=== PATIENT | female | born 1975 | race Caucasian/White ===

== ENCOUNTER 2017-05-23 13:22 | Emergency (ER) | payer SELFPAY ==
[2017-05-23] MEDS ORDERED: Transderm Scop 1.5MG Patch TOP ONE (13:38)
[2017-05-23] MEDS ORDERED: Zofran 4 MG/2 ML VIAL IV ONE (13:38)
[2017-05-23] MEDS ORDERED: ANTIVERT 25 MG PO ONE (13:38)
[2017-05-23] MEDS ORDERED: Sodium Chloride 0.9% 1000 ML 1,000 ML ONE (13:44)
[2017-05-23] MEDS ORDERED: Zofran 4 MG/2 ML VIAL ONE (13:44)
[2017-05-23] MEDS ORDERED: ANTIVERT 25 MG ONE (13:44)
[2017-05-23] MEDS ORDERED: Sodium Chloride 0.9% 1000 ML 1,000 ML IV SCH (13:45)
--- NOTE | 2017-05-23 13:45 | ERPHSYRPT ---
- History of Present Illness Time Seen by Provider: 05/23/17 13:35 Source: patient Exam Limitations: no limitations Patient Subjective Stated Complaint: dizziness for two days with vomiting today Triage Nursing Assessment: ambulated to room without difficulty. skin w/d, color normal. resp nonlabored. Physician History: patient developed acute vertigo yesterday; worse with change in position of head ; no headache; associated with N&V; no fever; no travel no exposure; no prior hx ; getting worse; no visual disturbance; no trauma; no sore throat; tinnitus yesterday; not today Timing/Duration: today (recurrent), yesterday (onset), intermittent, sudden, worse Severity: moderate Modifying Factors: Improves With: immobilization (helps), movement (aggravates) Associated Symptoms: nausea, vomiting Allergies/Adverse Reactions: Penicillins Allergy (Verified 05/23/17 13:37) Hx Tetanus, Diphtheria Vaccination/Date Given: No Hx Influenza Vaccination/Date Given: No Hx Pneumococcal Vaccination/Date Given: No - Review of Systems Constitutional: No Symptoms Eyes: No Eye Pain, No Photophobia, No Vision Changes, No Double Vision Ears, Nose, & Throat: Tinnitus (yestrday), No Ear Pain, No Nose Congestion, No Throat Pain, No Snoring Respiratory: No Cough, No Dyspnea, No Wheezing Cardiac: No Chest Pain, No Palpitations, No Syncope Abdominal/Gastrointestinal: Nausea, Vomiting, No Abdominal Pain, No Diarrhea Genitourinary Symptoms: No Symptoms Musculoskeletal: No Symptoms Skin: No Symptoms Neurological: Dizziness, Vertigo, No Focal Weakness, No Headache, No Speech Changes Psychological: No Symptoms Endocrine: No Symptoms Hematologic/Lymphatic: No Symptoms Immunological/Allergic: No Symptoms - Past Medical History Pertinent Past Medical History: Yes Neurological History: No Pertinent History ENT History: No Pertinent History Cardiac History: No Pertinent History Respiratory History: No Pertinent History Endocrine Medical History: Hypothyroidism Musculoskeletal History: Other GI Medical History: No Pertinent History History: No Pertinent History Psycho-Social History: No Pertinent History Female Reproductive Disorders: No Pertinent History Other Medical History: JUVINILE ARTHRITIS, ibs - Past Surgical History Past Surgical History: Yes Neuro Surgical History: No Pertinent History Cardiac: No Pertinent History Respiratory: No Pertinent History Gastrointestinal: No Pertinent History Genitourinary: No Pertinent History Musculoskeletal: No Pertinent History Female Surgical History: No Pertinent History Other Surgical History: Right carpal tunnel - Social History Smoking Status: Never smoker How long have you smoked: 20 YEARS Exposure to second hand smoke: No Alcohol Use: None Drug Use: none Patient Lives Alone: No Significant Family History: no pertinent family hx - Female History Hx Last Menstrual Period: two weeks ago Hx Now: No - Nursing Vital Signs Nursing Vital Signs: Initial Vital Signs Temperature 98.4 F 05/23/17 13:31 Pulse Rate 82 05/23/17 13:31 Respiratory Rate 16 05/23/17 13:31 Blood Pressure 155/95 05/23/17 13:31 O2 Sat by Pulse Oximetry 99 05/23/17 13:31 Pain Scale Pain Intensity 0 - Physical Exam General Appearance: mild distress, alert Eye Exam: PERRL/EOMI, eyes nml inspection, other (no nystagmus; no papiledema; fundi benign), No photophobia Ears, Nose, Throat Exam: normal ENT inspection, TMs normal, pharynx normal, moist mucous membranes Neck Exam: normal inspection, non-tender, supple, full range of motion, No meningismus, No carotid bruit, No JVD Respiratory Exam: normal breath sounds, lungs clear, airway intact, No chest tenderness, No respiratory distress Cardiovascular Exam: regular rate/rhythm, normal heart sounds, normal peripheral pulses, capillary refill 2-3 sec, No murmur Gastrointestinal/Abdomen Exam: soft, normal bowel sounds, No tenderness, No guarding, No rebound, No organomegaly Pelvic Exam: deferred Rectal Exam: deferred Back Exam: normal inspection, normal range of motion, No CVA tenderness, No vertebral tenderness Extremity Exam: normal inspection, normal range of motion, No eleonora's sign, No pedal edema Neurologic Exam: alert, oriented x 3, cooperative, 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, normal mood/affect, nml station & gait, sensation nml, other (vertigo exacerbated with motion of head) Skin Exam: normal color, warm, dry, No rash SpO2 Interpretation: normal SpO2: 99 Oxygen Delivery: Room Air - Course Nursing assessment & vital signs reviewed: Yes Rhythm Strip: Rate (82), Normal Sinus Rhythm Ordered Tests: Active Orders 24 hr Category Date Time Status Accucheck STAT Care 05/23/17 13:38 Active Frontload Driver STAT Care 05/23/17 13:38 Active IV Insertion STAT Care 05/23/17 13:38 Active BMP Stat Lab 05/23/17 14:00 Completed CBC W DIFF Stat Lab 05/23/17 14:00 Completed Medication Summary Generic Name Dose Route Start Last Admin Trade Name Hiral PRN Reason Stop Dose Admin Sodium Chloride 1,000 mls @ 100 mls/hr 05/23/17 13:45 05/23/17 13:46 Sodium Chloride 0.9% 1000 Ml IV 06/22/17 13:44 100 mls/hr .Q10H KAYKAY Administration Discontinued Medications Generic Name Dose Route Start Last Admin Trade Name Hiral PRN Reason Stop Dose Admin Sodium Chloride 250 mls @ 999 mls/hr 05/23/17 13:39 05/23/17 13:46 Sodium Chloride 0.9% 1000 Ml IV 05/23/17 13:54 999 mls/hr .Q16M STA Administration Meclizine HCl 25 mg 05/23/17 13:38 05/23/17 13:46 Antivert 25 Mg PO 05/23/17 13:39 25 mg STAT ONE Administration Meclizine HCl Confirm 05/23/17 13:44 Antivert 25 Mg Administered 05/23/17 13:45 Dose 25 mg .ROUTE .STK-MED ONE Ondansetron HCl 4 mg 05/23/17 13:38 05/23/17 13:46 Zofran 4 Mg/2 Ml Vial IV 05/23/17 13:39 4 mg STAT ONE Administration Ondansetron HCl Confirm 05/23/17 13:44 Zofran 4 Mg/2 Ml Vial Administered 05/23/17 13:45 Dose 4 mg .ROUTE .STK-MED ONE Scopolamine HBr 1.5 mg 05/23/17 13:38 05/23/17 13:48 Transderm Scop 1.5mg Patch TOP 05/23/17 13:39 1.5 mg STAT ONE Administration Lab/Rad Data: Laboratory Result Diagrams 05/23/17 14:00 05/23/17 14:00 Laboratory Results 05/23/17 05/23/17 Range/Units 14:00 14:00 WBC 8.9 (4.0-10.5) K/mm3 RBC 4.69 (4.1-5.4) M/mm3 Hgb 11.6 L (12.0-16.0) gm/dl Hct 37.7 (35-47) % MCV 80.4 (78-100) fl MCH 24.7 L (26-32) pg MCHC 30.8 L (32-36) g/dl RDW 16.8 H (11.5-14.0) % Plt Count 298 (150-450) K/mm3 MPV 11.1 H (6-9.5) fl Gran % 75.7 H (36.0-66.0) % Lymphocytes % 15.1 L (24.0-44.0) % Monocytes % 5.4 (0.0-12.0) % Eosinophils % 3.6 (0.00-5.0) % Basophils % 0.2 (0.0-0.4) % Basophils # 0.02 (0-0.4) Sodium 138 (136-145) mEq/L Potassium 3.9 (3.5-5.1) mEq/L Chloride 103 (98-107) mEq/L Carbon Dioxide 22.4 (21-32) mEq/L Anion Gap 16.4 H (5-15) MEQ/L BUN 7 L (9-20) mg/dL Creatinine 1.01 (0.55-1.30) mg/dl Estimated GFR > 60 ML/MIN Glucose 119 H (70-110) MG/DL Calcium 8.9 (8.5-10.1) mg/dL reviewed - Progress Progress: improved (after med =s and iv fluids), re-examined (after iv fluids and meds) Progress Note: 05/23/17 13:44 IV started; monitor NSR; will give IV fluid bolus; check labs; give meds and recheck 05/23/17 14:15 rechecked; family at bedside; some relief after meds and IV fluids; lab pending ; will monitor and recheck 05/23/17 14:33 rechecked; vS improved; she feels much better after IV bolus nad meds; she can now move her head without symptoms; family at bedside; BMP and CBC wnl; will continue to hydrate; treatment plan and instructions given Counseled pt/family regarding: lab results, diagnosis, need for follow-up - Departure Time of Disposition: 14:45 Departure Disposition: Home Clinical Impression: Acute onset of severe vertigo Condition: Stable Critical Care Time: No Instructions: Vertigo Additional Instructions: rest 24-48 hours; fluid hydration; avoid sudden position changes; continue meds ; wear tDS patch x 3 days Follow-up with family doctor as directed. Call for appointment. Return if any problems. If you smoke please stop. Call or follow up with your family doctor for assistance if you need it to stop. Please wear your seatbelt when driving. Have a nice day. Thank you for allowing us to participate in your care today. :o) Dr Mikhail Hernandez Prescriptions: Ondansetron [Zofran Odt] 4 mg PO Q6H PRN PRN #10 tab.rapdis PRN Reason: Vomiting Meclizine HCl 25 mg [Antivert 25 mg] 25 mg PO Q8H PRN PRN #14 tablet PRN Reason: Dizziness
[2017-05-23 14:15] LABS: BASOPHIL % 0.2 % (0.0-0.4); Eosinophil % 3.6 % (0.00-5.0); Granulocytes % 75.7 % (36.0-66.0); Lymphocytes % 15.1 % (24.0-44.0); Mean Cell Volume 80.4 fl (78-100); Mean Corpuscular Hemoglobin 24.7 pg (26-32); Mean Platelet Volume 11.1 fl (6-9.5); Monocytes % 5.4 % (0.0-12.0); Platelet Count 298 K/mm3 (150-450); Red Blood Count 4.69 M/mm3 (4.1-5.4); Red Cell Distribution Width 16.8 % (11.5-14.0); White Blood Count 8.9 K/mm3 (4.0-10.5)
[2017-05-23 14:30] LABS: ANION GAP 16.4 MEQ/L (5-15); BLOOD UREA NITROGEN 7 mg/dL (9-20); CHLORIDE 103 mEq/L (98-107); Carbon Dioxide 22.4 mEq/L (21-32); Glucose 119 MG/DL (70-110); Potassium 3.9 mEq/L (3.5-5.1); SODIUM 138 mEq/L (136-145)
[2017-05-23 14:38] VITALS: O2SAT 99
[2017-05-23 15:17] VITALS: BP 166/89; PULSE 73
== END 2017-05-23 15:18 | disposition home or self-care (01) ==
LOC: ED 13:22
DX: R42 Dizziness and giddiness (principal); R11.2 Nausea with vomiting, unspecified
CPT/HCPCS: 36000; 36415; 80048; 82962; 85025; 93041; 96360; 96361; 96374; 99284; J2405; A9270-GY

== ENCOUNTER 2017-08-12 21:29 | Emergency (ER) | payer OTHER ==
[2017-08-12] MEDS ORDERED: BACTRIM DS TABLET PO ONE ×2 (22:27→22:33)
--- NOTE | 2017-08-12 22:33 | ERPHSYRPT ---
- History of Present Illness Time Seen by Provider: 08/12/17 22:24 Source: patient Exam Limitations: no limitations Patient Subjective Stated Complaint: Pt sts yesterday with red spot on left jaw line. Pt sts today was itching and then started increasing in side. Sts pain was radiating down into neck and up into ear. Also has LABOY. Rates pain 4/10. Triage Nursing Assessment: Pt alert, oriented, answers all questions appropriately. Skin pink, warm, dry. Resps non-labored. Pt ambulatory to tx room , steady gait noted. Reddened area noted to left side of jaw line. Physician History: LAST NIGHT IN HER SLEEP PT WAS BITTEN BY AN INSECT BELOW HER LEFT JAW AND TODAY THE AREA BECAME TENDER, SWOLLEN AND RED. PT ALSO C/O A SORE THROAT TODAY. PT DENIES SHORTNESS OF AIR, DIFFICULTY SWALLOWING, FEVER, NAUSEA. Allergies/Adverse Reactions: Penicillins Allergy (Verified 05/23/17 13:37) Hx Tetanus, Diphtheria Vaccination/Date Given: No Hx Influenza Vaccination/Date Given: No Hx Pneumococcal Vaccination/Date Given: No Immunizations Up to Date: Yes - Review of Systems Constitutional: No Fever Ears, Nose, & Throat: No Painful Swallowing Respiratory: No Dyspnea Abdominal/Gastrointestinal: No Nausea Skin: Other (INSECT BITE BELOW LEFT JAW.) Endocrine: No Excessive Sweating All Other Systems: Reviewed and Negative - Past Medical History Pertinent Past Medical History: Yes Neurological History: No Pertinent History ENT History: No Pertinent History Cardiac History: No Pertinent History Respiratory History: No Pertinent History Endocrine Medical History: Hypothyroidism Musculoskeletal History: Other GI Medical History: No Pertinent History History: No Pertinent History Psycho-Social History: No Pertinent History Female Reproductive Disorders: No Pertinent History Other Medical History: JUVINILE ARTHRITIS, IBS, vitiligo - Past Surgical History Past Surgical History: Yes Neuro Surgical History: No Pertinent History Cardiac: No Pertinent History Respiratory: No Pertinent History Gastrointestinal: No Pertinent History Genitourinary: No Pertinent History Musculoskeletal: No Pertinent History Female Surgical History: No Pertinent History Other Surgical History: Right carpal tunnel - Social History Smoking Status: Never smoker How long have you smoked: 20 YEARS Exposure to second hand smoke: No Alcohol Use: None Drug Use: none Patient Lives Alone: No Significant Family History: no pertinent family hx - Female History Hx Last Menstrual Period: currently Hx Now: No - Nursing Vital Signs Nursing Vital Signs: Initial Vital Signs Temperature 98.5 F 08/12/17 22:15 Pulse Rate 86 08/12/17 22:15 Respiratory Rate 16 08/12/17 22:15 Blood Pressure 145/82 08/12/17 22:15 O2 Sat by Pulse Oximetry 98 08/12/17 22:15 Pain Scale Pain Intensity 4 - Physical Exam General Appearance: alert Eye Exam: PERRL/EOMI Ears, Nose, Throat Exam: TMs normal, pharynx normal, moist mucous membranes Neck Exam: full range of motion Respiratory Exam: lungs clear Cardiovascular Exam: normal heart sounds Gastrointestinal/Abdomen Exam: soft, normal bowel sounds Back Exam: normal range of motion Neurologic Exam: alert, cooperative Skin Exam: other (MILDLY ERYTHEMATOUS, MINIMALLY EDEMATOUS AND TENDER 1 CM AREA BELOW LEFT JAW WITHOUT FLUCTUANCE.) SpO2 Interpretation: normal SpO2: 98 Oxygen Delivery: Room Air - Course Nursing assessment & vital signs reviewed: Yes - Departure Time of Disposition: 22:35 Departure Disposition: Home Clinical Impression: MILD CELLULITIS OF THE FACE Condition: Stable Critical Care Time: No Referrals: NEIL HERNANDEZ [Primary Care Provider] - Instructions: Cellulitis -- Adult Additional Instructions: FOLLOW UP WITH PRIVATE DOCTOR TOMORROW. Prescriptions: Smz/Tmp Ds Tablet [Bactrim Ds Tablet] 1 udtab PO BID #20 tablet
[2017-08-12] MEDS ORDERED: NORCO 5/325 MG PO ONE (22:35)
[2017-08-12] MEDS ORDERED: NORCO 5/325 MG ONE (22:37)
[2017-08-12 22:49] VITALS: BP 139/75; PULSE 80; O2SAT 97
== END 2017-08-12 22:55 | disposition home or self-care (01) ==
LOC: ED 21:29
DX: L03.211 Cellulitis of face (principal)
CPT/HCPCS: 99283; A9270-GY

== ENCOUNTER 2017-12-12 00:25 | Observation (INO) | payer SELFPAY ==
[2017-12-12] MEDS ORDERED: PROTONIX 40 MG IV IV ONE ×2 (00:39→01:24)
[2017-12-12] MEDS ORDERED: Phenergan 25 MG INJ IV ONE (00:39)
[2017-12-12] MEDS ORDERED: Sodium Chloride 0.9% 1000 ML 1,000 ML IV SCH (00:45)
--- NOTE | 2017-12-12 00:48 | ERPHSYRPT ---
- History of Present Illness Time Seen by Provider: 12/12/17 00:34 Historian: patient Exam Limitations: no limitations Patient Subjective Stated Complaint: Abdominal distention, diarrhea Triage Nursing Assessment: Pt presents to the ED with complaints of abdominal distention, weight gain, and diarrhea. Pt states she has hx of IBS, states diarrhea, and abdominal discomfort is normal, but states she has gained 16lbs today. Pt has round soft abdomin. No distress noted at this time, skin pwd. Physician History: FOR THE PAST 4 DAYS PT HAS HAD HEMATOCHEZIA; TONIGHT PT HAS HAD ABDOMINAL BLOATING, NAUSEA AND A WEIGHT GAIN OF 16# SINCE THE MORNING. PT ALSO C/O SHORTNESS OF AIR FOR THE PAST 3 HOURS; DENIES CHEST PAIN, DYSURIA, FEVER; ADMITS TO THE CHRONIC ABDOMINAL DISCOMFORT SHE HAS WITH HER IBS THAT SHE HAS HAD FOR THE PAST 20 YEARS. PT HAS ALSO HAD HEMORRHOIDS FOR THE PAST 25 YEARS. Allergies/Adverse Reactions: Penicillins Allergy (Verified 08/12/17 22:51) Hx Tetanus, Diphtheria Vaccination/Date Given: No Hx Influenza Vaccination/Date Given: No Hx Pneumococcal Vaccination/Date Given: No Immunizations Up to Date: No - Review of Systems Constitutional: Other (WEIGHT GAIN IN PAST 24 HOURS), No Fever Respiratory: Dyspnea Cardiac: No Chest Pain Abdominal/Gastrointestinal: Abdominal Pain, Nausea, Diarrhea (CHRONIC), Other ( ABDOMINAL BLOATING), No Vomiting Genitourinary Symptoms: No Dysuria Neurological: No Headache All Other Systems: Reviewed and Negative - Past Medical History Pertinent Past Medical History: Yes Neurological History: No Pertinent History ENT History: No Pertinent History Cardiac History: No Pertinent History Respiratory History: No Pertinent History Endocrine Medical History: Hypothyroidism Musculoskeletal History: Other GI Medical History: No Pertinent History History: No Pertinent History Psycho-Social History: No Pertinent History Female Reproductive Disorders: No Pertinent History Other Medical History: JUVINILE ARTHRITIS, IBS, vitiligo - Past Surgical History Past Surgical History: Yes Neuro Surgical History: No Pertinent History Cardiac: No Pertinent History Respiratory: No Pertinent History Gastrointestinal: No Pertinent History Genitourinary: No Pertinent History Musculoskeletal: No Pertinent History Female Surgical History: No Pertinent History Other Surgical History: Right carpal tunnel - Social History Smoking Status: Former smoker How long have you smoked: 20 YEARS Exposure to second hand smoke: No Alcohol Use: None Drug Use: none Patient Lives Alone: No Significant Family History: no pertinent family hx - Female History Hx Last Menstrual Period: 11/28/2017 Hx Now: (UNKNOWN) - Nursing Vital Signs Nursing Vital Signs: Initial Vital Signs Temperature 98.5 F 12/12/17 00:36 Pulse Rate 105 H 12/12/17 00:36 Respiratory Rate 16 12/12/17 00:36 Blood Pressure 137/93 12/12/17 00:36 O2 Sat by Pulse Oximetry 98 12/12/17 00:36 Pain Scale Pain Intensity 0 - Physical Exam General Appearance: alert Eye Exam: PERRL/EOMI Ears, Nose, Throat Exam: TMs normal, pharynx normal, moist mucous membranes Neck Exam: normal inspection Respiratory Exam: lungs clear Cardiovascular Exam: normal heart sounds Gastrointestinal/Abdomen Exam: distention (MILD), other (B.S. HAVE INCREASED PITCH AND ARE HYPOACTIVE), No tenderness Rectal Exam: normal rectal tone, hemorrhoids (MANY EXTERNAL HEMORRHOIDS.) Back Exam: normal range of motion Extremity Exam: normal inspection, No pedal edema Neurologic Exam: alert, cooperative Skin Exam: pale, other (VITILIGO) SpO2 Interpretation: normal SpO2: 98 Oxygen Delivery: Room Air - Course Nursing assessment & vital signs reviewed: Yes - CT Exams Abdomen/Pelvis CT Interpretation: Tele-radiologist Report (NO ACUTE FINDINGS) Ordered Tests: Active Orders 24 hr Category Date Time Status Clean Catch Urine Specimen STAT Care 12/12/17 00:39 Active EKG-ER Only STAT Care 12/12/17 00:42 Active IV Insertion STAT Care 12/12/17 00:39 Active ABDOMEN AND PELVIS W/0 CONTRAS [CT] Stat Exams 12/12/17 00:40 Taken CHEST 2 VIEWS (PA AND LAT) Stat Exams 12/12/17 00:41 Taken AMYLASE Stat Lab 12/12/17 01:06 Completed CBC W DIFF Stat Lab 12/12/17 01:06 Completed CMP Stat Lab 12/12/17 01:06 Completed CULTURE,URINE Stat Lab 12/12/17 01:06 Received HCG QUALITATIVE,SERUM Stat Lab 12/12/17 01:06 Completed LIPASE Stat Lab 12/12/17 01:06 Completed MAGNESIUM Stat Lab 12/12/17 01:06 Completed Occult Blood,Stool Other Stat Lab 12/12/17 01:33 Completed PROTIME WITH INR Stat Lab 12/12/17 01:06 Completed PTT Stat Lab 12/12/17 01:06 Completed TROPONIN Q3H Lab 12/12/17 01:06 Completed TROPONIN Q3H Lab 12/12/17 03:45 Ordered TROPONIN Q3H Lab 12/12/17 06:45 Ordered TROPONIN Q3H Lab 12/12/17 09:45 Ordered TROPONIN Q3H Lab 12/12/17 12:45 Ordered UA W/ MICROSCOPIC Stat Lab 12/12/17 01:06 Completed Medication Summary Generic Name Dose Route Start Last Admin Trade Name Freq PRN Reason Stop Dose Admin Sodium Chloride 1,000 mls @ 100 mls/hr 12/12/17 00:45 12/12/17 01:25 Sodium Chloride 0.9% 1000 Ml IV 01/11/18 00:44 100 mls/hr .Q10H KAYKAY Administration Ceftriaxone Sodium/Dextrose 1 g in 50 mls @ 100 mls/hr 12/12/17 02:24 Rocephin 1 Gm-D5w 50 Ml Bag IV 12/12/17 02:53 STAT STA Discontinued Medications Generic Name Dose Route Start Last Admin Trade Name Stasq PRN Reason Stop Dose Admin Pantoprazole Sodium 40 mg 12/12/17 00:39 12/12/17 01:25 Protonix 40 Mg Iv IV 12/12/17 00:40 40 mg STAT ONE Administration Pantoprazole Sodium Confirm 12/12/17 01:24 Protonix 40 Mg Iv Administered 12/12/17 01:25 Dose 40 mg IV .STK-MED ONE Promethazine HCl 12.5 mg 12/12/17 00:39 12/12/17 01:25 Phenergan 25 Mg Inj IV 12/12/17 00:40 12.5 mg STAT ONE Administration Promethazine HCl Confirm 12/12/17 01:24 Phenergan 25 Mg Inj Administered 12/12/17 01:25 Dose 25 mg .ROUTE .STK-MED ONE Lab/Rad Data: Laboratory Result Diagrams 12/12/17 01:06 12/12/17 01:06 Laboratory Results 12/12/17 12/12/17 12/12/17 Range/Units 01:33 01:06 01:06 WBC (4.0-10.5) K/mm3 RBC (4.1-5.4) M/mm3 Hgb (12.0-16.0) gm/dl Hct (35-47) % MCV (78-100) fl MCH (26-32) pg MCHC (32-36) g/dl RDW (11.5-14.0) % Plt Count (150-450) K/mm3 MPV (6-9.5) fl Gran % (36.0-66.0) % Lymphocytes % (24.0-44.0) % Monocytes % (0.0-12.0) % Eosinophils % (0.00-5.0) % Basophils % (0.0-0.4) % Basophils # (0-0.4) INR (0.8-3.0) APTT (25.3-37.0) SECONDS Sodium (136-145) mEq/L Potassium (3.5-5.1) mEq/L Chloride (98-107) mEq/L Carbon Dioxide (21-32) mEq/L Anion Gap (5-15) MEQ/L BUN (9-20) mg/dL Creatinine (0.55-1.30) mg/dl Estimated GFR ML/MIN Glucose (70-110) MG/DL Calcium (8.5-10.1) mg/dL Magnesium (1.8-2.4) mg/dL Total Bilirubin (0.2-1.0) mg/dL AST (15-37) U/L ALT (12-78) U/L Alkaline Phosphatase (46-116) U/L Troponin I < 0.017 (0.000-0.056) ng/ml Serum Total Protein (6.4-8.2) gm/dL Albumin (3.4-5.0) g/dL Amylase (25-115) U/L Lipase (73-393) U/L Serum , Qual NEGATIVE (Negative) Ur Collection Type Urine Color (YELLOW) Urine Appearance (CLEAR) Urine pH (5-6) Ur Specific [place] (1.005-1.025) Urine Protein (Negative) Urine Ketones (NEGATIVE) Urine Blood (0-5) Maurice/ul Urine Nitrite (NEGATIVE) Urine Bilirubin (NEGATIVE) Urine Urobilinogen (0-1) mg/dL Ur Leukocyte Esterase (NEGATIVE) Urine Microscopic RBC (0-2) /HPF Urine Microscopic WBC (0-5) /HPF Ur Epithelial Cells (FEW) /HPF Urine Bacteria (NEGATIVE) /HPF Urine Mucus (NEGATIVE) /HPF Urine Culture Reflexed (NO) Urine Glucose (NEGATIVE) mg/dL Stool Occult Blood POSITIVE (Negative) Specimen Received ABO Group Rh Factor Antibody Screen (NEGATIVE) 12/12/17 12/12/17 12/12/17 Range/Units 01:06 01:06 01:06 WBC (4.0-10.5) K/mm3 RBC (4.1-5.4) M/mm3 Hgb (12.0-16.0) gm/dl Hct (35-47) % MCV (78-100) fl MCH (26-32) pg MCHC (32-36) g/dl RDW (11.5-14.0) % Plt Count (150-450) K/mm3 MPV (6-9.5) fl Gran % (36.0-66.0) % Lymphocytes % (24.0-44.0) % Monocytes % (0.0-12.0) % Eosinophils % (0.00-5.0) % Basophils % (0.0-0.4) % Basophils # (0-0.4) INR 1.01 (0.8-3.0) APTT 30.7 (25.3-37.0) SECONDS Sodium (136-145) mEq/L Potassium (3.5-5.1) mEq/L Chloride (98-107) mEq/L Carbon Dioxide (21-32) mEq/L Anion Gap (5-15) MEQ/L BUN (9-20) mg/dL Creatinine (0.55-1.30) mg/dl Estimated GFR ML/MIN Glucose (70-110) MG/DL Calcium (8.5-10.1) mg/dL Magnesium 2.0 (1.8-2.4) mg/dL Total Bilirubin (0.2-1.0) mg/dL AST (15-37) U/L ALT (12-78) U/L Alkaline Phosphatase (46-116) U/L Troponin I (0.000-0.056) ng/ml Serum Total Protein (6.4-8.2) gm/dL Albumin (3.4-5.0) g/dL Amylase (25-115) U/L Lipase (73-393) U/L Serum , Qual (Negative) Ur Collection Type Urine Color (YELLOW) Urine Appearance (CLEAR) Urine pH (5-6) Ur Specific [place] (1.005-1.025) Urine Protein (Negative) Urine Ketones (NEGATIVE) Urine Blood (0-5) Maurice/ul Urine Nitrite (NEGATIVE) Urine Bilirubin (NEGATIVE) Urine Urobilinogen (0-1) mg/dL Ur Leukocyte Esterase (NEGATIVE) Urine Microscopic RBC (0-2) /HPF Urine Microscopic WBC (0-5) /HPF Ur Epithelial Cells (FEW) /HPF Urine Bacteria (NEGATIVE) /HPF Urine Mucus (NEGATIVE) /HPF Urine Culture Reflexed (NO) Urine Glucose (NEGATIVE) mg/dL Stool Occult Blood (Negative) Specimen Received ABO Group A Rh Factor POSITIVE Antibody Screen NEGATIVE (NEGATIVE) 12/12/17 12/12/17 12/12/17 Range/Units 01:06 01:06 01:06 WBC 10.3 (4.0-10.5) K/mm3 RBC 3.98 L (4.1-5.4) M/mm3 Hgb 9.3 L (12.0-16.0) gm/dl Hct 31.3 L (35-47) % MCV 78.6 (78-100) fl MCH 23.3 L (26-32) pg MCHC 29.7 L (32-36) g/dl RDW 16.5 H (11.5-14.0) % Plt Count 318 (150-450) K/mm3 MPV 10.7 H (6-9.5) fl Gran % 53.2 (36.0-66.0) % Lymphocytes % 27.2 (24.0-44.0) % Monocytes % 8.0 (0.0-12.0) % Eosinophils % 11.0 H (0.00-5.0) % Basophils % 0.6 (0.0-0.4) % Basophils # 0.06 (0-0.4) INR (0.8-3.0) APTT (25.3-37.0) SECONDS Sodium 138 (136-145) mEq/L Potassium 3.4 L (3.5-5.1) mEq/L Chloride 104 (98-107) mEq/L Carbon Dioxide 21.2 (21-32) mEq/L Anion Gap 16.0 H (5-15) MEQ/L BUN 9 (9-20) mg/dL Creatinine 1.03 (0.55-1.30) mg/dl Estimated GFR > 60 ML/MIN Glucose 151 H (70-110) MG/DL Calcium 9.0 (8.5-10.1) mg/dL Magnesium (1.8-2.4) mg/dL Total Bilirubin 0.20 (0.2-1.0) mg/dL AST 19 (15-37) U/L ALT 33 (12-78) U/L Alkaline Phosphatase 47 (46-116) U/L Troponin I (0.000-0.056) ng/ml Serum Total Protein 7.6 (6.4-8.2) gm/dL Albumin 3.7 (3.4-5.0) g/dL Amylase 47 (25-115) U/L Lipase 244 (73-393) U/L Serum , Qual (Negative) Ur Collection Type VOID Urine Color YELLOW (YELLOW) Urine Appearance HAZY (CLEAR) Urine pH 5.0 (5-6) Ur Specific [place] 1.020 (1.005-1.025) Urine Protein NEGATIVE (Negative) Urine Ketones MODERATE (NEGATIVE) Urine Blood TRACE NON-HEM (0-5) Maurice/ul Urine Nitrite NEGATIVE (NEGATIVE) Urine Bilirubin NEGATIVE (NEGATIVE) Urine Urobilinogen NORMAL (0-1) mg/dL Ur Leukocyte Esterase 1+ (NEGATIVE) Urine Microscopic RBC 2-5 (0-2) /HPF Urine Microscopic WBC 5-10 (0-5) /HPF Ur Epithelial Cells MODERATE (FEW) /HPF Urine Bacteria MODERATE (NEGATIVE) /HPF Urine Mucus SLIGHT (NEGATIVE) /HPF Urine Culture Reflexed YES (NO) Urine Glucose NEGATIVE (NEGATIVE) mg/dL Stool Occult Blood (Negative) Specimen Received 12/12/17 0100 ABO Group Rh Factor Antibody Screen (NEGATIVE) - Progress Discussed with DrDirk: Clifford (OBS - [id number]) - Departure Time of Disposition: 02:38 Departure Disposition: Home Clinical Impression: HEMATOCHEZIA, ANEMIA, UTI, VITILIGO, HYPOTHYROIDISM, IBS, EXTERNAL HEMORRHOIDS Condition: Stable Critical Care Time: No Referrals: NEIL HERNANDEZ [Primary Care Provider] -
[2017-12-12 01:09] LABS: BASOPHIL % 0.6 % (0.0-0.4); Basophil (Absolute #) 0.06 (0-0.4); Eosinophil (Absolute #) 1.14 (0-0.5); Granulocyte Absolute (ANC) 5.49 (1.4-6.9); Granulocytes % 53.2 % (36.0-66.0); Hematocrit 31.3 % (35-47); Hemoglobin 9.3 gm/dl (12.0-16.0); Lymphocyte (Absolute #) 2.81 (1.0-4.6); Lymphocytes % 27.2 % (24.0-44.0); Mean Cell Volume 78.6 fl (78-100); Mean Corpuscular Hemoglobin 23.3 pg (26-32); Mean Corpuscular Hgb Concent. 29.7 g/dl (32-36); Mean Platelet Volume 10.7 fl (6-9.5); Monocyte (Absolute #) 0.83 (0.0-1.3); Platelet Count 318 K/mm3 (150-450); Red Blood Count 3.98 M/mm3 (4.1-5.4); Red Cell Distribution Width 16.5 % (11.5-14.0); White Blood Count 10.3 K/mm3 (4.0-10.5)
[2017-12-12] MEDS ORDERED: Sodium Chloride 0.9% 1000 ML 1,000 ML ONE (01:24)
[2017-12-12] MEDS ORDERED: Phenergan 25 MG INJ ONE (01:24)
[2017-12-12 01:35] LABS: Appearance HAZY (CLEAR); Bacteria MODERATE /HPF (NEGATIVE); Bilirubin NEGATIVE (NEGATIVE); Blood TRACE NON-HEM Ery/ul (0-5); Epithelial Cells MODERATE /HPF (FEW); Glucose NEGATIVE (NEGATIVE); Ketones MODERATE (NEGATIVE); Leukocyte Esterase 1+ (NEGATIVE); Mucus SLIGHT /HPF (NEGATIVE); Nitrite NEGATIVE (NEGATIVE); Protein,Urine Dip NEGATIVE (Negative); Urobilinogen NORMAL mg/dL (0-1)
[2017-12-12 01:36] LABS: INR 1.01 (0.8-3.0)
[2017-12-12 01:38] LABS: PTT 30.7 SECONDS (25.3-37.0)
[2017-12-12 01:40] LABS: ALBUMIN 3.7 g/dL (3.4-5.0); ALKALINE PHOSPHATASE 47 U/L (46-116); AMYLASE 47 U/L (25-115); BLOOD UREA NITROGEN 9 mg/dL (9-20); CHLORIDE 104 mEq/L (98-107); Carbon Dioxide 21.2 mEq/L (21-32); Creatinine 1 1.03 mg/dl (0.55-1.30); EST GLOMERULAR FILTRATION RATE > 60 ML/MIN; Glucose 151 MG/DL (70-110); LIPASE 244 U/L (73-393); Potassium 3.4 mEq/L (3.5-5.1); SGOT/AST 19 U/L (15-37); SGPT/ALT 33 U/L (12-78); SODIUM 138 mEq/L (136-145); Total Protein 7.6 gm/dL (6.4-8.2)
[2017-12-12 01:54] LABS: ABO TYPING A; Antibody Screen NEGATIVE (NEGATIVE); RH TYPING POSITIVE
[2017-12-12] MEDS ORDERED: ROCEPHIN 1 Gm-D5w 50 ml Bag** 1 G/50 ML IVPB IV STA (02:24)
[2017-12-12] MEDS ORDERED: ROCEPHIN 1 Gm-D5w 50 ml Bag** 1 G/50 ML IVPB IV ONE (02:39)
[2017-12-12] MEDS ORDERED: Zofran 4 MG/2 ML VIAL IV PRN (03:28)
[2017-12-12] MEDS: Sodium Chloride 0.9% 1000 ML 1,000 ML IV SCH ×2 (04:04→14:13)
[2017-12-12 06:14] LABS: BASOPHIL % 0.7 % (0.0-0.4); Basophil (Absolute #) 0.06 (0-0.4); Eosinophil % 12.3 % (0.00-5.0); Eosinophil (Absolute #) 1.07 (0-0.5); Granulocyte Absolute (ANC) 4.34 (1.4-6.9); Granulocytes % 49.7 % (36.0-66.0); Hemoglobin 8.6 gm/dl (12.0-16.0); Lymphocyte (Absolute #) 2.47 (1.0-4.6); Lymphocytes % 28.3 % (24.0-44.0); Mean Cell Volume 79.5 fl (78-100); Mean Corpuscular Hgb Concent. 29.7 g/dl (32-36); Monocyte (Absolute #) 0.79 (0.0-1.3); Platelet Count 273 K/mm3 (150-450); Red Blood Count 3.65 M/mm3 (4.1-5.4); Red Cell Distribution Width 16.5 % (11.5-14.0); White Blood Count 8.7 K/mm3 (4.0-10.5)
[2017-12-12 06:23] LABS: Mean Corpuscular Hemoglobin 23.5 pg (26-32)
[2017-12-12 06:53] LABS: ALBUMIN 3.1 g/dL (3.4-5.0); ALKALINE PHOSPHATASE 36 U/L (46-116); ANION GAP 12.6 MEQ/L (5-15); BLOOD UREA NITROGEN 8 mg/dL (9-20); CHLORIDE 107 mEq/L (98-107); Calcium 8.3 mg/dL (8.5-10.1); Carbon Dioxide 20.8 mEq/L (21-32); Creatinine 1 0.89 mg/dl (0.55-1.30); EST GLOMERULAR FILTRATION RATE > 60 ML/MIN; Glucose 121 MG/DL (70-110); Potassium 3.5 mEq/L (3.5-5.1); SGOT/AST 15 U/L (15-37); SGPT/ALT 25 U/L (12-78); SODIUM 137 mEq/L (136-145); Total Protein 6.5 gm/dL (6.4-8.2)
[2017-12-12 06:55] LABS: TROPONIN < 0.017 ng/ml (0.000-0.056)
--- NOTE | 2017-12-12 08:54 | XRAY ---
Indication: Short of breath. Comparison: December 27, 2012. PA/lateral chest again demonstrates normal heart, lungs, and bony thorax.
--- NOTE | 2017-12-12 08:54 | XRAY ---
Indication: Abdominal distention and bloody diarrhea. Multiple contiguous axial images obtained through the abdomen and pelvis without contrast as ordered. Comparison: None Lung bases are clear. Heart is not enlarged. Noncontrasted stomach and bowel loops appear nonobstructed. Normal appendix. Tiny cul-de-sac fluid presumed from ruptured/leaking cyst. 1.4 cm right upper pole renal cyst. Mild diffuse fatty liver. Remaining liver, gallbladder, pancreas, spleen, adrenal glands, kidneys, ureters, bladder, uterus, and aorta appear unremarkable for noncontrast exam. Osseous structures intact. Impression: 1. Tiny cul-de-sac fluid presumed physiologic from ruptured/leaking cyst. 2. Fatty liver and right renal cyst. 3. No acute intra-abdominal/pelvic abnormalities on this noncontrast exam. Comment: Preliminary interpretation was made by [facility]. No critical discrepancy. CT DI 28.11
--- NOTE | 2017-12-12 08:59 | HP ---
CHIEF COMPLAINT: Rectal bleeding. HISTORY OF PRESENT ILLNESS: The patient is a 41 year-old white female who reports that she began having problems with abdominal distention after which she began having bright red blood per rectum. The patient reports that normally she has constipation and will be a week between bowel movements. She reports she almost always has to take laxative to have a bowel movement. She has been diagnosed with irritable bowel syndrome with constipation. She denies having any problems with bleeding before. PAST MEDICAL/SURGICAL HISTORY: Her medical history is significant for hypothyroid for which she is not currently taking any medication because she has no insurance. Her medical history is otherwise significant arthritis. She has vitiligo. MEDICATIONS: She is apparently on no medications presently. ALLERGIES: PENICILLIN. PHYSICAL EXAMINATION: Revealed an obese white female currently in no obvious distress. Her vital signs on admission showed a temperature of 98.5F, pulse 105, respiratory rate 16, blood pressure 137/93. O2 saturation 98% on room air. HEENT: Normocephalic, atraumatic. Pupils equal round reactive to light. Extraocular movements intact. Oropharynx is pink and moist. NECK: Supple without lymphadenopathy, thyromegaly or JVD. CHEST: Clear to auscultation with good air movement bilaterally. HEART: Regular rate and rhythm without murmurs, rubs or gallops. ABDOMEN: Soft, nontender, nondistended without hepatosplenomegaly or palpable masses. EXTREMITIES: Without cyanosis, clubbing or edema. NEUROLOGIC: The patient is alert and oriented x3. SKIN: The skin does show the changes consistent with vitiligo. LAB DATA AND TESTS: She had a CT scan which was essentially unremarkable. She has A-positive blood type with negative antibody screen. Her international normalized ratio is 1.01 with PTT of 30.7. HCG negative. Troponins less than 0.017. Metabolic panel showed nonfasting glucose of 151, BUN 9, creatinine 1.03. Potassium slightly low at 3.4. Liver enzymes were normal. Amylase and lipase were normal. Magnesium was 2.0. Occult blood stool was positive. UA was essentially normal. Her initial blood count hemoglobin was 9.3, PLT count 318,000. White blood cell count 10,300. Repeat approximately six hours later showed hemoglobin 8.6. ASSESSMENT: A patient with hematochezia. PLAN: Evaluation with upper and lower endoscopy. We will monitor her hemoglobin and hematocrit. She may possibly need transfusion although at this point the patient reports she has had no bowel movements since her admission in the emergency room.
[2017-12-12] MEDS ORDERED: PROTONIX 40 MG IV IV SCH (10:00)
[2017-12-12 13:05] LABS: BASOPHIL % 0.7 % (0.0-0.4); Basophil (Absolute #) 0.05 (0-0.4); Eosinophil % 15.2 % (0.00-5.0); Eosinophil (Absolute #) 1.14 (0-0.5); Granulocyte Absolute (ANC) 3.93 (1.4-6.9); Granulocytes % 52.2 % (36.0-66.0); Hematocrit 30.8 % (35-47); Hemoglobin 9.2 gm/dl (12.0-16.0); Lymphocyte (Absolute #) 1.76 (1.0-4.6); Lymphocytes % 23.4 % (24.0-44.0); Mean Cell Volume 79.6 fl (78-100); Mean Corpuscular Hgb Concent. 29.9 g/dl (32-36); Mean Platelet Volume 10.1 fl (6-9.5); Monocyte (Absolute #) 0.64 (0.0-1.3); Monocytes % 8.5 % (0.0-12.0); Platelet Count 275 K/mm3 (150-450); Red Blood Count 3.87 M/mm3 (4.1-5.4); Red Cell Distribution Width 16.5 % (11.5-14.0); White Blood Count 7.5 K/mm3 (4.0-10.5)
[2017-12-12 13:14] LABS: Mean Corpuscular Hemoglobin 23.7 pg (26-32)
[2017-12-12] MEDS ORDERED: Golytely Solution 4000 ML PO ONE (14:00)
[2017-12-12] MEDS ORDERED: ROCEPHIN 1 Gm-D5w 50 ml Bag** 1 G/50 ML IVPB IV SCH (22:00)
[2017-12-13] MEDS: Sodium Chloride 0.9% 1000 ML 1,000 ML IV SCH (00:56)
[2017-12-13] MEDS ORDERED: Lactated Ringers 1,000 ML IV ONE (03:23)
[2017-12-13 03:49] VITALS: O2SAT 97
[2017-12-13 05:56] LABS: BASOPHIL % 0.3 % (0.0-0.4); Basophil (Absolute #) 0.02 (0-0.4); Eosinophil % 10.8 % (0.00-5.0); Eosinophil (Absolute #) 0.83 (0-0.5); Granulocyte Absolute (ANC) 4.24 (1.4-6.9); Granulocytes % 54.9 % (36.0-66.0); Hematocrit 28.7 % (35-47); Hemoglobin 8.5 gm/dl (12.0-16.0); Lymphocyte (Absolute #) 2.08 (1.0-4.6); Mean Cell Volume 79.3 fl (78-100); Mean Corpuscular Hgb Concent. 29.6 g/dl (32-36); Mean Platelet Volume 11.3 fl (6-9.5); Monocyte (Absolute #) 0.54 (0.0-1.3); Platelet Count 277 K/mm3 (150-450); Red Blood Count 3.62 M/mm3 (4.1-5.4); Red Cell Distribution Width 16.6 % (11.5-14.0); White Blood Count 7.7 K/mm3 (4.0-10.5)
[2017-12-13 06:05] LABS: Mean Corpuscular Hemoglobin 23.4 pg (26-32)
[2017-12-13] MEDS ORDERED: Lactated Ringers 1,000 ML IV SCH (08:00)
[2017-12-13 08:22] VITALS: BP 118/71; PULSE 89
[2017-12-13] MEDS ORDERED: DIPRIVAN 200 MG/20 ML IV ONE (09:49)
[2017-12-13] MEDS ORDERED: Ketamine HCl 50 MG/ML IV ONE (09:49)
--- NOTE | 2017-12-13 12:05 | OP ---
SURGERY DATE/TIME: 12/13/2017 0832 PREOPERATIVE DIAGNOSIS: Hematochezia. POSTOPERATIVE DIAGNOSES: 1) External hemorrhoids. 2) Duodenitis. PROCEDURES: 1) Esophagogastroduodenoscopy. 2) Colonoscopy. SURGEON: Dr. Perera. ANESTHESIA: Medications were given by the anesthesia department. BRIEF HISTORY: The patient is a 41 year old white female who presented to the hospital with rectal bleeding. She reports it was bright red in nature. The patient was admitted to the hospital with blood count in the 9 range and then dropped to the 8.5 range after hydration but she had no further bleeding after this. The patent was felt the need to have endoscopic evaluation. She had obvious area with external hemorrhoids but we were concerned about the possibility of other problems. The patient was appraised of the risks of the procedure including the risk of perforation, phlebitis, untoward reaction to medication, bleeding and missed lesions. The patient verbalized her understanding and desired to have the procedure performed. DESCRIPTION OF PROCEDURE: The patient was given the medications by the anesthesia department. She had continuous pulse oximetry, ECG monitoring, intermittent blood pressure monitoring and tidal CO2 monitoring during the examination. She was placed in the left lateral decubitus position. A bite block was placed and the flexible Olympus gastroscope was used to intubate the oropharynx. The esophagus was easily intubated. The scope was passed along through the stomach which appeared to have normal gastric rugal folds. The gastric morales was suctioned dry and the stomach was re-insufflated. The scope was passed along the greater curvature of the stomach to the antrum. Pylorus encountered and intubated. The duodenum inspected and found to be mildly erythematous but no erosions or ulcerations were noted. The scope was withdrawn towards the stomach. Again, a retroflex view was obtained of the lesser curvature, fundus and cardia regions of the stomach and these appeared to be normal. The scope was then carefully withdrawn with inspection of gastroesophageal junction being normal as well. The scope was removed from the patient. Next, a digital rectal examination was performed and revealed large external hemorrhoids but no active bleeding. Anal sphincter tone was felt to be normal. No masses were otherwise felt. The flexible Olympus pediatric colonoscope was used to intubate the rectum. A view of the colon was developed sequentially to the cecum including a short distance in the terminal ileum. Upon insertion and withdrawal including retroflex view in the rectum, no mucosal lesions were encountered. The scope was removed from the patient who tolerated the procedure well and was sent back to OP recovery in good condition. The prep was noted to be good.
== END 2017-12-13 09:50 | disposition home or self-care (01) ==
LOC: ED 00:25 → MED SURG 03:16
PROVIDERS: ADMIT Family Medicine; ATTEND Family Medicine
PROC: 0DJ08ZZ Inspection of Upper Intestinal Tract, Via Natural or Artificial Opening Endoscopic (ICD-10-PCS; principal; 2017-12-13)
PROC: 0DJD8ZZ Inspection of Lower Intestinal Tract, Via Natural or Artificial Opening Endoscopic (ICD-10-PCS; 2017-12-13)
DX: K64.4 Residual hemorrhoidal skin tags (principal); K29.80 Duodenitis without bleeding; E03.9 Hypothyroidism, unspecified; M19.90 Unspecified osteoarthritis, unspecified site; L80 Vitiligo; D64.9 Anemia, unspecified
CPT/HCPCS: 00731; 00812; 36000; 36415; 71046; 74176; 80053; 81000; 82150; 82272; 83690; 83735; 84484; 84703; 85025; 85610; 85730; 86850; 86900; 86901; 87086; 93005; 93268; 94760; 96360; 96361; 96365; 96374; 96375; 99284; 99285; G0378; J0696; J2550; J2704; A9270-GY

== ENCOUNTER 2019-10-27 05:58 | Day surgery (SDC) | payer OTHER ==
[2019-10-27] MEDS ORDERED: Lactated Ringers 1,000 ML IV SCH ×2 (06:30→09:00)
[2019-10-27] MEDS ORDERED: KEFZOL 1 GM/50 ML PREMIX** 1 GM/50 ML IVPB IV SCH (06:45)
[2019-10-27] MEDS ORDERED: SUBLIMAZE 100 MCG/2 ML ONE (06:52)
[2019-10-27] MEDS ORDERED: DIPRIVAN 200 MG/20 ML IV ONE (06:52)
[2019-10-27] MEDS ORDERED: CLINDAMYCIN-D5W 900 MG/50 ML*** 900 MG/50 ML BAG IV STA (07:12)
[2019-10-27] MEDS ORDERED: Decadron 4 MG INJ ONE (07:39)
[2019-10-27] MEDS ORDERED: TORAdol 30 mg Injection ONE (07:39)
[2019-10-27] MEDS ORDERED: Zofran 4 MG/2 ML VIAL ONE ×2 (07:39→09:13)
[2019-10-27] MEDS ORDERED: Lactated Ringers 1,000 ML IV ONE (08:51)
[2019-10-27] MEDS ORDERED: Ephedrine Sulfate 50 MG/ML ONE (08:53)
[2019-10-27] MEDS ORDERED: Zofran 4 MG/2 ML VIAL IV STA (09:13)
[2019-10-27] MEDS ORDERED: PERCOCET TABLET 5/325MG PO ONE (09:29)
[2019-10-27 10:09] VITALS: O2SAT 99
[2019-10-27 10:18] VITALS: BP 148/80; PULSE 80
--- NOTE | 2019-10-29 10:41 | OP ---
SURGERY DATE/TIME: 10/27/2019 0734 PREOPERATIVE DIAGNOSIS: Menorrhagia, dysmenorrhea, enlarged uterus and anemia. POSTOPERATIVE DIAGNOSIS: Menorrhagia, dysmenorrhea, enlarged uterus and anemia. PROCEDURE: Hysteroscopy, D&C with endometrial ablation using NovaSure. SURGEON: Kirby Leonardo D.O. SUPERVISOR SCREEN PRINTING: Chris Velarde certified ophthalmic surgical assistant. ANESTHESIA: General. ESTIMATED BLOOD LOSS: Minimal. COMPLICATIONS: None. INDICATIONS: The risks, benefits, indications and alternatives of the procedure were reviewed with the patient prior to procedure. The patient understood the risk of infection, bleeding, bowel injury, bladder injury, ureteral injury, uterine perforation, pelvic infection, thromboembolic disorder associated with the surgery and desires to have this surgery as a possible need to alleviate her current medical condition. DESCRIPTION OF PROCEDURE AND FINDINGS: At this point the patient is taken to the operating room, given general sedation, placed in dorsal lithotomy position. Prepped and draped in the usual sterile fashion. A weighted speculum is then placed in the patient's vagina and the anterior lip of the cervix grasped with a single tooth tenaculum. Endocervical dilators are advanced to the endocervical canal used to dilate the cervix. At this point a 5 mm hysteroscope was then placed through the endocervical canal where visualization of the uterine cavity appeared to be within normal limits. There were no gross abnormalities located within the uterine cavity. From this point the patient the hysteroscope was then removed and a curette was then placed into the fundus of the uterus where it had been sounded to approximately 8 cm. From this point curettage was performed in all quadrants of the uterus retrieving a mild to moderate amount of tissue. At this point hemostasis obtained. From this point the curette was then removed and at this point the NovaSure instrument was then placed, was measured and was set at 6.5 cm in length and 4.7 cm in width and the instrument was then inserted through the endocervical canal towards the fundal region and retracted approximately 1 cm where the instrument was engaged. After engagement the machine was turned on for ablation time of 55 seconds and was done so without complication. After complete ablation the instrument was then disengaged and removed from the uterine cavity. From this point all instruments were then removed from the patient's vaginal region. The patient was then taken out of the dorsal lithotomy position and was taken out of anesthesia and was then taken to the recovery room in stable condition. All instruments and laps were accounted for x2.
== END 2019-10-27 10:15 | disposition home or self-care (01) ==
LOC: SDC 05:58
PROVIDERS: ATTEND Obstetrics & Gynecology
DX: N92.0 Excessive and frequent menstruation with regular cycle (principal); N94.6 Dysmenorrhea, unspecified; N85.2 Hypertrophy of uterus; D64.9 Anemia, unspecified
CPT/HCPCS: 84703; J0690; J1100; J1885; J2405; J2704; J3010; A9270-GY

== ENCOUNTER 2023-03-17 10:30 | Emergency (ER) | payer OTHER ==
[2023-03-17] MEDS ORDERED: Norflex 60 MG/2 ML IM ONE (10:44)
[2023-03-17 10:51] VITALS: BP 145/103; PULSE 82; O2SAT 97
[2023-03-17] MEDS ORDERED: Norflex 60 MG/2 ML ONE (10:52)
--- NOTE | 2023-03-17 11:25 | ERPHSYRPT ---
- History of Present Illness Time Seen by Provider: 03/17/23 10:36 Source: patient Exam Limitations: no limitations Patient Subjective Stated Complaint: Pt reports she was lifting her daughter out of the car on 03/09/23 and her right elbow into upper arm started hurting. She thought it would get better so she didn't seek care however pain has continued and it is difficult to straighten out and bend elbow. Triage Nursing Assessment: Pt alert and oriente x3. No apparent respiratory distress. Ambualted to ED cot without difficulty. Right elbow and upper arm tender to palpate, tender with limited movement. Physician History: 47 years old [id number] female presented in the ER with chief complaint of right elbow/forearm and arm pain after she lifted her 25-year-old daughter 8 days ago and having intermittent pain with movements and making it difficult to fully extend her elbow. No numbness or tingling in the forearm/hand. No weakness in the right upper extremity. No obvious/known trauma to the right u pper extremity. Occurred: days ago (8) Method of Injury: other Quality: intermittent, sharpness Severity of Pain-Max: moderate Severity of Pain-Current: moderate Extremities Pain Location: arm: right, elbow: right, forearm: right Modifying Factors: Improves With: immobilization. Worsens With: movement Associated Symptoms: none Allergies/Adverse Reactions: Penicillins Allergy (Mild, Verified 03/17/23 10:46) Rash Home Medications: Levothyroxine Sodium 112 Mcg [Synthroid 112 Mcg] 125 mcg PO DAILY 10/15/19 [History] Docusate Sodium [Stool Softener] 100 mg PO DAILY 10/27/19 [History] Hx Tetanus, Diphtheria Vaccination/Date Given: Yes Hx Influenza Vaccination/Date Given: No Hx Pneumococcal Vaccination/Date Given: No Travel Risk - International Travel Have you traveled outside of the country in past 3 weeks: No - Coronavirus Screening Are you exhibiting any of the following symptoms?: No Close contact with a COVID-19 positive Pt in past 14-21 Days: No - Vaccine Status Have you recieved a Covid-19 vaccination: No - Review of Systems Constitutional: No Symptoms Ears, Nose, & Throat: No Symptoms Respiratory: No Symptoms Cardiac: No Symptoms Abdominal/Gastrointestinal: No Symptoms Musculoskeletal: Joint Pain, Myalgias Skin: No Symptoms Neurological: No Symptoms Psychological: No Symptoms Hematologic/Lymphatic: No Symptoms - Past Medical History Pertinent Past Medical History: Yes Neurological History: No Pertinent History ENT History: No Pertinent History Cardiac History: No Pertinent History Respiratory History: No Pertinent History Endocrine Medical History: Hypothyroidism Musculoskeletal History: Other GI Medical History: Diverticulitis, Other History: No Pertinent History Psycho-Social History: Anxiety Female Reproductive Disorders: Abnormal Uterine Bleeding Other Medical History: JUVINILE ARTHRITIS, IBS, vitiligo, anemia, only has one kidney due to having one removed from cancer - Past Surgical History Past Surgical History: Yes Neuro Surgical History: No Pertinent History Cardiac: No Pertinent History Respiratory: No Pertinent History Gastrointestinal: No Pertinent History Genitourinary: Kidney Surgery Musculoskeletal: No Pertinent History Female Surgical History: No Pertinent History Other Surgical History: Right carpal tunnel, one kidney removed, biopsy of left breast - Social History Smoking Status: Former smoker How long have you smoked: 20 YEARS Exposure to second hand smoke: No Alcohol Use: None Drug Use: none Patient Lives Alone: Yes Significant Family History: no pertinent family hx - Female History Hx Last Menstrual Period: 03/03/23 Hx Now: No - Nursing Vital Signs Nursing Vital Signs: Initial Vital Signs Temperature 97.4 F 03/17/23 10:38 Pulse Rate 82 03/17/23 10:38 Respiratory Rate 15 03/17/23 10:38 Blood Pressure 145/103 03/17/23 10:38 O2 Sat by Pulse Oximetry 97 03/17/23 10:38 Pain Scale Pain Intensity 8 - Physical Exam General Appearance: no apparent distress, alert Eyes, Ears, Nose, Throat Exam: normal ENT inspection Neck Exam: normal inspection, non-tender, supple, full range of motion Cardiovascular/Respiratory Exam: normal breath sounds, regular rate/rhythm Shoulder Exam: normal inspection Elbow/Forearm Exam: normal inspection, limited ROM (Unable to fully extend right elbow. Tender biceps tendon at elbow. Spasm of the bicep. Minimal medial epicondyles tenderness.) Hand Exam: normal inspection, non-tender, no evidence of injury, normal ROM Neuro/Tendon Exam: normal sensation Mental Status Exam: alert, oriented x 3, disoriented to person Skin Exam: normal color SpO2 Interpretation: normal SpO2: 97 O2 Delivery: Room Air Ordered Tests: Active Orders 24 hr Category Date Time Status ELBOW (MINIMUM 3 VIEWS) Stat Exams 03/17/23 10:55 Taken Medication Summary Discontinued Medications Generic Name Dose Route Start Last Admin Trade Name Hiral PRN Reason Stop Dose Admin Orphenadrine Citrate 60 mg 03/17/23 10:44 03/17/23 10:55 Orphenadrine Citrate 60 Mg/2 Ml Vial IM 03/17/23 10:45 60 mg STAT ONE Administration Orphenadrine Citrate Confirm 03/17/23 10:52 Orphenadrine Citrate 60 Mg/2 Ml Vial Administered 03/17/23 10:53 Dose 60 mg .ROUTE .STK-MED ONE - Progress Progress: pain not gone completely, re-examined Progress Note: 03/17/23 11:22 47 years old right-handed dominant female is evaluated for right elbow/forearm/arm pain after she lifted her daughter almost 8 days ago. Pain is reproducible with extension and lifting and better with being still without any numbness tingling or weakness of right upper extremity. On exam she has obvious spasm and tenderness of bicep. She is given muscle relaxants with minimal relief immediately. She does not want any pain medications. X-rays right elbow reviewed by me are negative for acute fracture dislocation, official report is pending. She does not want sling or Jose wrap. Recommended taking Tylenol and will give a prescription of Flexeril to go home and outpatient follow-up recommended. Discussed signs symptoms of worsening needing return to ER which she seems understanding. Stable for discharge. Counseled pt/family regarding: diagnosis, need for follow-up, rad results Medical Desision Making - Diagnostic Testing Diagnostic test were ordered, analyzed, and reviewed by me: Yes Radiological Interpretation: Interpreted by me, Reviewed by me - Risk of complications The pt has a mod risk of morbidity or mortality based on: Need for prescription drug management - Departure Departure Disposition: Home Clinical Impression: Strain of right elbow and forearm Condition: Stable Critical Care Time: No Referrals: NEIL HERNANDEZ [Primary Care Provider] - Follow Up with PCP/3 days ABHIJEET - SONIA NIEVES NP [NON-STAFF PHY W/O PRIVILEGES] - Follow up/PCP as directed (Tomorrow for reevaluation) Instructions: Muscle Strain (DC) Additional Instructions: Take Tylenol along with muscle relaxants. Avoid exertional activities. Follow- up with orthopedic surgery for reevaluation. Return to ER for any worsening. Prescriptions: Cyclobenzaprine HCl 10 mg [Flexeril 10 MG] 10 mg PO TID #12 tablet
--- NOTE | 2023-03-17 19:41 | XRAY ---
Indication: Pain following lifting injury one week ago. Comparison: None 3 view right elbow obtained. No bony, articular, or soft tissue abnormalities.
== END 2023-03-17 11:47 | disposition home or self-care (01) ==
LOC: ED 10:30
DX: S56.911A Strain of unspecified muscles, fascia and tendons at forearm level, right arm, initial encounter (principal); S53.401A Unspecified sprain of right elbow, initial encounter; X50.0XXA Overexertion from strenuous movement or load, initial encounter; Z79.899 Other long term (current) drug therapy; Z28.310 Unvaccinated for COVID-19
CPT/HCPCS: 73080; 96372; 99283; J2360

== ENCOUNTER 2023-05-26 16:14 | Emergency (ER) | payer OTHER ==
[2023-05-26 16:34] VITALS: PULSE 93; RESP 18; TEMP 98.7; O2SAT 97
[2023-05-26] MEDS ORDERED: Sodium Chloride 0.9% 1000 ML 1,000 ML IV STA (17:01)
[2023-05-26 17:07] LABS: BASOPHIL % 0.6 % (0.0-0.4); Basophil (Absolute #) 0.04 x10^3/uL (0-0.4); Eosinophil % 4.1 % (0.00-5.0); Eosinophil (Absolute #) 0.29 x10^3/uL (0-0.5); Hematocrit 42.1 % (35-47); Hemoglobin 13.4 g/dL (12.0-16.0); IMMATURE GRAN # 0.02 x10^3u/L (0.00-0.03); IMMATURE GRAN % 0.3 % (0.00-0.4); Lymphocyte (Absolute #) 1.16 x10^3/uL (1.0-4.6); Lymphocytes % 16.5 % (24.0-44.0); Mean Cell Volume 92.1 fL (78-100); Mean Corpuscular Hemoglobin 29.3 pg (26-32); Mean Corpuscular Hgb Concent. 31.8 g/dL (32-36); Monocyte (Absolute #) 0.53 x10^3/uL (0.0-1.3); Monocytes % 7.5 % (0.0-12.0); Platelet Count 221 x10^3/uL (150-450); Red Blood Count 4.57 x10^6/uL (4.1-5.4); Red Cell Distribution Width 12.7 % (11.5-14.0)
[2023-05-26 17:12] LABS: Appearance Clear (Clear); Bacteria Few /HPF (None Seen); Bilirubin Negative (Negative); Blood Negative (Negative); Epithelial Cells Rare /HPF (None Seen); Glucose, Urine Negative (Negative); Hyaline Casts NONE SEEN /LPF (0-2); Ketones Negative (Negative); Leukocyte Esterase Trace (Negative); Nitrite Negative (Negative); Ph 6.5 (4.6-8.0); Protein,Urine Dip Negative (Negative); RBC 0-2 /HPF (0-5); Urobilinogen 0.2 mg/dL (0.2)
[2023-05-26 17:13] LABS: ADD URINE CULTURE? NO (NO)
[2023-05-26 17:14] LABS: ALBUMIN 3.8 g/dL (3.5-5.0); ANION GAP 11.3 MEQ/L (5-15); BILIRUBIN,TOTAL 0.4 mg/dL (0.2-1.3); Calcium 8.5 mg/dL (8.4-10.2); Creatinine 1 1.19 mg/dL (0.52-1.04); EST GLOMERULAR FILTRATION RATE 51.5 ML/MIN; Potassium 3.8 mmol/L (3.5-5.1)
--- NOTE | 2023-05-26 17:31 | ERPHSYRPT ---
- History of Present Illness Time Seen by Provider: 05/26/23 17:29 Historian: patient Exam Limitations: no limitations Patient Subjective Stated Complaint: C/O lower abdominal pain that started yesterday. Denies fever or n/v. Denies diarrhea but c/o frequent bowel movement s. Triage Nursing Assessment: Patient ambulated back to ER with a hunched gait. Patient indicates it hurts more to ambulate and stand up straight. She is alert and oriented. No SOB. Skin tone fair. Physician History: C/O lower abdominal pain that started yesterday. Denies fever or n/v. Denies diarrhea but c/o frequent bowel movements. Patient is 47-year-old female started having abdominal pain associated with the loose stool since yesterday patient denies any nausea vomiting blood in the stool or urine. Timing/Duration: yesterday Quality: cramping Abdominal Pain Onset Location: suprapubic Pain Radiation: no radiation Severity of Pain-Max: mild Severity of Pain-Current: moderate Modifying Factors: Improves With: nothing Associated Symptoms: denies symptoms Previous symptoms: no prior history Allergies/Adverse Reactions: Penicillins Allergy (Mild, Verified 05/26/23 16:26) Rash acetaminophen [From [facility]] Allergy (Verified 05/26/23 16:26) fentanyl Allergy (Verified 05/26/23 16:26) hydrocodone [From [facility]] Allergy (Verified 05/26/23 16:26) Home Medications: Levothyroxine Sodium 112 Mcg [Synthroid 112 Mcg] 125 mcg PO DAILY 10/15/19 [History] Hx Tetanus, Diphtheria Vaccination/Date Given: Yes Hx Influenza Vaccination/Date Given: No Hx Pneumococcal Vaccination/Date Given: No Immunizations Up to Date: Yes Travel Risk - International Travel Have you traveled outside of the country in past 3 weeks: No - Coronavirus Screening Are you exhibiting any of the following symptoms?: No Close contact with a COVID-19 positive Pt in past 14-21 Days: No - Vaccine Status Have you recieved a Covid-19 vaccination: No - Review of Systems Constitutional: No Fever, No Chills Eyes: No Symptoms Ears, Nose, & Throat: No Symptoms Respiratory: No Cough, No Dyspnea Cardiac: No Chest Pain, No Edema, No Syncope Abdominal/Gastrointestinal: Abdominal Pain, No Nausea, No Vomiting, No Diarrhea Genitourinary Symptoms: No Dysuria Musculoskeletal: No Back Pain, No Neck Pain Skin: No Rash Neurological: No Dizziness, No Focal Weakness, No Sensory Changes Psychological: No Symptoms Endocrine: No Symptoms All Other Systems: Reviewed and Negative - Past Medical History Pertinent Past Medical History: Yes Neurological History: No Pertinent History ENT History: No Pertinent History Cardiac History: No Pertinent History Respiratory History: No Pertinent History Endocrine Medical History: Hypothyroidism Musculoskeletal History: Arthritis GI Medical History: Diverticulitis, Other History: No Pertinent History Psycho-Social History: Anxiety Female Reproductive Disorders: Abnormal Uterine Bleeding Other Medical History: KIDNEY CANCER DX 03/11/22 AND HAD KIDNEY REMOVED 05/22/22. - Past Surgical History Past Surgical History: Yes Neuro Surgical History: No Pertinent History Cardiac: No Pertinent History Respiratory: No Pertinent History Gastrointestinal: No Pertinent History Genitourinary: Kidney Surgery Musculoskeletal: No Pertinent History Female Surgical History: No Pertinent History Other Surgical History: Right carpal tunnel, left kidney removed, biopsy of left breast - Social History Smoking Status: Former smoker How long have you smoked: 20 YEARS Exposure to second hand smoke: No Alcohol Use: None Drug Use: none Patient Lives Alone: Yes Significant Family History: no pertinent family hx - Female History Hx Last Menstrual Period: 3 weeks ago Hx Now: No - Nursing Vital Signs Nursing Vital Signs: Initial Vital Signs Temperature 98.7 F 05/26/23 16:14 Pulse Rate 93 H 05/26/23 16:14 Respiratory Rate 18 05/26/23 16:14 Blood Pressure 140/81 05/26/23 16:14 O2 Sat by Pulse Oximetry 97 05/26/23 16:14 Pain Scale Pain Intensity 4 - Physical Exam General Appearance: no apparent distress, alert Eye Exam: PERRL/EOMI, eyes nml inspection Ears, Nose, Throat Exam: normal ENT inspection, pharynx normal, moist mucous membranes Neck Exam: normal inspection, non-tender, supple, full range of motion Respiratory Exam: normal breath sounds, lungs clear, No respiratory distress Cardiovascular Exam: regular rate/rhythm, normal heart sounds Gastrointestinal/Abdomen Exam: soft, No tenderness, No mass Back Exam: normal inspection, normal range of motion, No CVA tenderness, No vertebral tenderness Extremity Exam: normal inspection, normal range of motion, pelvis stable Neurologic Exam: alert, oriented x 3, cooperative, normal mood/affect, nml cerebellar function, sensation nml, No motor deficits Skin Exam: normal color, warm, dry SpO2: 97 - Course Nursing assessment & vital signs reviewed: Yes - CT Exams Abdomen/Pelvis CT Interpretation: Tele-radiologist Report Ordered Tests: Active Orders 24 hr Category Date Time Status ABDOMEN AND PELVIS W/0 CONTRAS [CT] Stat Exams 05/26/23 17:31 Completed AMYLASE Stat Lab 05/26/23 17:05 Completed CBC W DIFF Stat Lab 05/26/23 17:05 Completed CMP Stat Lab 05/26/23 17:05 Completed LIPASE Stat Lab 05/26/23 17:05 Completed UA W/RFX UR CULTURE Stat Lab 05/26/23 17:05 Completed Medication Summary Discontinued Medications Generic Name Dose Route Start Last Admin Trade Name Freq PRN Reason Stop Dose Admin Sodium Chloride 1,000 mls @ 999 mls/hr 05/26/23 17:01 05/26/23 18:40 Sodium Chloride 0.9% 1000 Ml IV 05/26/23 18:01 Infused .Q1H1M STA Infusion Sodium Chloride Confirm 05/26/23 17:34 Sodium Chloride 0.9% 1000 Ml Administered 05/26/23 17:35 Dose 1,000 mls @ ud .ROUTE .STK-MED ONE Metronidazole 500 mg 05/26/23 18:56 Metronidazole 500 Mg Tablet PO 05/26/23 18:57 STAT ONE Lab/Rad Data: Laboratory Result Diagrams 05/26/23 17:05 05/26/23 17:05 Laboratory Results 05/26/23 05/26/23 05/26/23 Range/Units 17:05 17:05 17:05 WBC 7.0 (4.0-10.5) x10^3/uL RBC 4.57 (4.1-5.4) x10^6/uL Hgb 13.4 (12.0-16.0) g/dL Hct 42.1 (35-47) % MCV 92.1 (78-100) fL MCH 29.3 (26-32) pg MCHC 31.8 L (32-36) g/dL RDW 12.7 (11.5-14.0) % Plt Count 221 (150-450) x10^3/uL MPV 11.0 (7.5-11.0) fL Gran % 71.0 H (36.0-66.0) % Immature Gran % (Auto) 0.3 (0.00-0.4) % Nucleat RBC Rel Count 0.0 (0.00-0.1) % Eos # (Auto) 0.29 (0-0.5) x10^3/uL Immature Gran # (Auto) 0.02 (0.00-0.03) x10^3u/L Absolute Lymphs (auto) 1.16 (1.0-4.6) x10^3/uL Absolute Monos (auto) 0.53 (0.0-1.3) x10^3/uL Absolute Nucleated RBC 0.00 (0.00-0.01) x10^3u/L Lymphocytes % 16.5 L (24.0-44.0) % Monocytes % 7.5 (0.0-12.0) % Eosinophils % 4.1 (0.00-5.0) % Basophils % 0.6 (0.0-0.4) % Absolute Granulocytes 5.00 (1.4-6.9) x10^3/uL Basophils # 0.04 (0-0.4) x10^3/uL Sodium 139 (137-145) mmol/L Potassium 3.8 (3.5-5.1) mmol/L Chloride 105 (98-107) mmol/L Carbon Dioxide 26 (22-30) mmol/L Anion Gap 11.3 (5-15) MEQ/L BUN 14 (7-17) mg/dL Creatinine 1.19 H (0.52-1.04) mg/dL Estimated GFR 51.5 ML/MIN Glucose 141 H (74-106) mg/dL Calcium 8.5 (8.4-10.2) mg/dL Total Bilirubin 0.40 (0.2-1.3) mg/dL AST 28 (14-36) U/L ALT 21 (0-35) U/L Alkaline Phosphatase 55 (38-126) U/L Serum Total Protein 7.0 (6.3-8.2) g/dL Albumin 3.8 (3.5-5.0) g/dL Amylase 77 (30-110) U/L Lipase 200 (23-300) U/L Urine Color Yellow (Yellow) Urine Appearance Clear (Clear) Urine pH 6.5 (4.6-8.0) Ur Specific [place] 1.010 (1.005-1.030) Urine Protein Negative (Negative) Urine Glucose (UA) Negative (Negative) mg/dL Urine Ketones Negative (Negative) Urine Blood Negative (Negative) Urine Nitrite Negative (Negative) Urine Bilirubin Negative (Negative) Urine Urobilinogen 0.2 (0.2) mg/dL Ur Leukocyte Esterase Trace A (Negative) U Hyaline Cast (Auto) NONE SEEN (0-2) /LPF Urine Microscopic RBC 0-2 (0-5) /HPF Urine Microscopic WBC 3-5 (0-5) /HPF Ur Epithelial Cells Rare (None Seen) /HPF Urine Bacteria Few A (None Seen) /HPF Urine Culture Reflexed NO (NO) CT/ABDOMEN AND PELVIS W/0 CONTRAS CLINICAL HISTORY:lower abdominal pain COMPARISON:None. TECHNIQUE:CT scan of the abdomen and pelvis was performed without contrast. Coronal and sagittal reconstructive images were also obtained. FINDINGS: Abdomen: Multiple diverticula are seen in the sigmoid and ascending colon. In the sigmoid colon, there is fat-stranding noted adjacent the diverticula. The liver is normal in size measuring 17.0 cm craniocaudally. No diffuse or focal parenchymal abnormality. The portal vein, intrahepatic biliary radicals and the bile ducts are normal. The spleen and pancreas are unremarkable. The right kidney is normal in size and shape. A 2.3 cm hypodensity, a probable cyst, is seen in the superior cortex of the right kidney. No calculi or hydronephrosis. The left kidney is absent with surgical wire in the region of the left renal fossa. The gallbladder is distended and shows no definite stones. There is no evidence of wall thickening/ pericholecystic collection. The ascending colon, the transverse colon, the rest of the descending colon, and visualized small bowel loops are unremarkable. There is no evidence of significant enlargement of the mesenteric or retroperitoneal lymph nodes. Pelvis: The urinary bladder is unremarkable. The rectosigmoid colon is unremarkable. The uterus is unremarkable. A 2.2 x 2.6 cm cystic focus is seen in the right adnexa. The pelvic vasculature is unremarkable. No evidence of pelvic lymphadenopathy. The osseous structures in the pelvis, lower rib cage and lumbar spine show no abnormality. IMPRESSION: 1. Colonic diverticulosis, with signs of diverticulitis in the sigmoid colon. 2. Right adnexal cyst, likely ovarian in origin. Ultrasound correlation may be done for further evaluation. 3. Right renal cortical cyst. 4. 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 - Progress Progress: improved, pain not gone completely Counseled pt/family regarding: lab results, diagnosis, need for follow-up, rad results Medical Desision Making - Diagnostic Testing Diagnostic test were ordered, analyzed, and reviewed by me: Yes Radiological Interpretation: Teleradiologist Report - Risk of complications Low Risk: Low risk of morbidity from additional dx testing or treatment The pt has a mod risk of morbidity or mortality based on: Need for prescription drug management - Departure Departure Disposition: Home Clinical Impression: Sigmoid diverticulitis, Simple adnexal cyst greater than 1 cm in diameter in postmenopausal patient Condition: Stable Critical Care Time: No Referrals: NEIL HERNANDEZ [Primary Care Provider] - Follow up/PCP as directed Instructions: Diverticulitis (DC) Additional Instructions: Discharge/Care Plan LAURYN QUIÑONES was seen on 05/26/23 in the Emergency Room. The patient was counseled regarding Diagnosis,Lab results, Imaging studies, need for follow up and when to return to the Emergency Room. Prescriptions given: Discharge Note I have spoken with the patient and/or caregivers. I have explained the patient's condition, diagnosis and treatment plan based on the information available to me at this time. I have answered the patient's and/or caregiver's questions and addressed any concerns. The patient and/or caregivers have as good understanding of the patient's diagnosis, condition and treatment plan as can be expected at this point. The vital signs have been stable. The patient's condition is stable and appropriate for discharge from the emergency department. The patient will pursue further outpatient evaluation with the primary care physician or other designated or consulting physician as outlined in the discharge instructions. The patient and/or caregivers are agreeable to this plan of care and follow-up instructions have been explained in detail. The patient and/or caregivers have received these instruction. The patient/and or caregivers are aware that any significant change in condition or worsening of symptoms should prompt an immediate return to this or the closest emergency department or call 911. LAURYN QUIÑONES was seen on 05/26/23 n the Emergency Room. At that time you were treated for an emergent condition, during your visit Laboratory, Radiology and/or other procedures may have been ordered. It is very important that you follow-up with your Primary Care Physician NEIL HERNANDEZ within the next 24-48 hours to review your Emergency Room visit and the final results of testing that was ordered. Some test results such as Urine Cultures, Blood Cultures, and other cultures if ordered will not be finalized for 24-48 hours. If you do not have a Primary Care Provider please call the medical records department at [phone] ext [phone] to obtain a copy of your results or you may sign into our patient portal to obtain these results by visiting us @ [email or web address] and completing the following steps: 1. Click on the Patient Portal link 2. Click the Patient Self Enrollment Link to complete the enrollment form and en tering your 3. Once the enrollment form is completed you will receive an email with a temporary ID and password at the email address you provided. 4. Next choose a user name and password. Your user name must be at least 4 characters long and your password must be at least 4 characters long. 5. Choose a security question from the list and provide your answer to the question. If you already have signed into the Health Portal you may access your Health Care Information 20/05 by the following steps: 1. Login to our website @ [email or web address] 2. Enter your original user name and password. FAQS The [facility] Health Portal is an online tool that contains your Lab Results, Radiology Reports, Visit History, Discharge Instructions and Health Summary Lab and Radiology Results will not be available for 72 hours on the portal. The Portal is a secure site, passwords are encryted and URLs are re-written so they cannot be copied and pasted. You and authorized family members are the only ones who can access your Portal. Also there is a timeout feature that protects your information if you leave the Portal page open. If you have technical difficulty please use the Contact Us link on the page this will allow you to submit any questions you have regarding the Portal or you may contact the Medical Record Department at [phone]. Prescriptions: Metronidazole 500 mg [Flagyl 500 MG] 500 mg PO TID #21 tablet
[2023-05-26] MEDS ORDERED: Sodium Chloride 0.9% 1000 ML 1,000 ML ONE (17:34)
[2023-05-26 17:51] VITALS: BP 105/71
--- NOTE | 2023-05-26 18:50 | XRAY ---
CLINICAL HISTORY:lower abdominal pain COMPARISON:None. TECHNIQUE:CT scan of the abdomen and pelvis was performed without contrast. Coronal and sagittal reconstructive images were also obtained. FINDINGS: Abdomen: Multiple diverticula are seen in the sigmoid and ascending colon. In the sigmoid colon, there is fat-stranding noted adjacent the diverticula. The liver is normal in size measuring 17.0 cm craniocaudally. No diffuse or focal parenchymal abnormality. The portal vein, intrahepatic biliary radicals and the bile ducts are normal. The spleen and pancreas are unremarkable. The right kidney is normal in size and shape. A 2.3 cm hypodensity, a probable cyst, is seen in the superior cortex of the right kidney. No calculi or hydronephrosis. The left kidney is absent with surgical wire in the region of the left renal fossa. The gallbladder is distended and shows no definite stones. There is no evidence of wall thickening/ pericholecystic collection. The ascending colon, the transverse colon, the rest of the descending colon, and visualized small bowel loops are unremarkable. There is no evidence of significant enlargement of the mesenteric or retroperitoneal lymph nodes. Pelvis: The urinary bladder is unremarkable. The rectosigmoid colon is unremarkable. The uterus is unremarkable. A 2.2 x 2.6 cm cystic focus is seen in the right adnexa. The pelvic vasculature is unremarkable. No evidence of pelvic lymphadenopathy. The osseous structures in the pelvis, lower rib cage and lumbar spine show no abnormality. IMPRESSION: 1. Colonic diverticulosis, with signs of diverticulitis in the sigmoid colon. 2. Right adnexal cyst, likely ovarian in origin. Ultrasound correlation may be done for further evaluation. 3. Right renal cortical cyst. 4. 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 The [facility] ER was called at [phone] at 05:45 PM FILM AND VIDEO GRAPHICS DESIGNER, 05/26/[address] Bennett was informed about significant findings. Electronically Signed by: Jen Ramirez MD. (05/26/2023 17:49:56 FILM AND VIDEO GRAPHICS DESIGNER)
[2023-05-26] MEDS ORDERED: Flagyl 500 MG PO ONE (18:56)
[2023-05-26] MEDS ORDERED: Flagyl 500 MG ONE (19:33)
== END 2023-05-26 19:48 | disposition home or self-care (01) ==
LOC: ED 16:14
DX: K57.32 Diverticulitis of large intestine without perforation or abscess without bleeding (principal); N83.201 Unspecified ovarian cyst, right side; R10.30 Lower abdominal pain, unspecified; Z79.899 Other long term (current) drug therapy; Z28.310 Unvaccinated for COVID-19
CPT/HCPCS: 36415; 74176; 80053; 81001; 82150; 83690; 85025; 99283; A9270-GY

== ENCOUNTER 2023-08-27 17:38 | Emergency (ER) | payer OTHER ==
[2023-08-27 18:09] VITALS: TEMP 98.6
[2023-08-27 18:35] LABS: Absolute Neutrophil Ct (ANC) 5.77 x10^3/uL (1.4-6.9); BASOPHIL % 0.6 % (0.0-0.4); Basophil (Absolute #) 0.05 x10^3/uL (0-0.4); Eosinophil % 4.8 % (0.00-5.0); Hematocrit 44.8 % (35-47); Hemoglobin 14.2 g/dL (12.0-16.0); IMMATURE GRAN # 0.02 x10^3u/L (0.00-0.03); IMMATURE GRAN % 0.2 % (0.00-0.4); Lymphocyte (Absolute #) 1.48 x10^3/uL (1.0-4.6); Lymphocytes % 17.6 % (24.0-44.0); Mean Cell Volume 90.9 fL (78-100); Mean Corpuscular Hemoglobin 28.8 pg (26-32); Mean Corpuscular Hgb Concent. 31.7 g/dL (32-36); Mean Platelet Volume 10.5 fL (7.5-11.0); Monocytes % 8.3 % (0.0-12.0); Neutrophil % 68.5 % (36.0-66.0); Platelet Count 259 x10^3/uL (150-450); Red Blood Count 4.93 x10^6/uL (4.1-5.4); Red Cell Distribution Width 13.8 % (11.5-14.0); White Blood Count 8.4 x10^3/uL (4.0-10.5)
[2023-08-27 18:41] LABS: ALBUMIN 4.2 g/dL (3.5-5.0); BILIRUBIN,TOTAL 0.6 mg/dL (0.2-1.3); Calcium 9.1 mg/dL (8.4-10.2); Creatinine 1 1.27 mg/dL (0.52-1.04); EST GLOMERULAR FILTRATION RATE 52.2 ML/MIN; Potassium 4.2 mmol/L (3.5-5.1); Total Protein 7.9 g/dL (6.3-8.2)
[2023-08-27 18:47] LABS: Appearance Clear (Clear); Bacteria None Seen /HPF (None Seen); Bilirubin Negative (Negative); Epithelial Cells Few /HPF (None Seen); Glucose, Urine Negative (Negative); Hyaline Casts NONE SEEN /LPF (0-2); Ketones Negative (Negative); Leukocyte Esterase Negative (Negative); Nitrite Negative (Negative); Ph 6.5 (4.6-8.0); Protein,Urine Dip Negative (Negative); RBC 0-2 /HPF (0-5); Urobilinogen 0.2 mg/dL (0.2); WBC 0-2 /HPF (0-5)
[2023-08-27 18:48] LABS: ADD URINE CULTURE? NO (NO); Blood Negative (Negative)
[2023-08-27 21:32] VITALS: BP 143/90; PULSE 81; RESP 29; O2SAT 99
--- NOTE | 2023-08-27 21:46 | ERPHSYRPT ---
- History of Present Illness Time Seen by Provider: 08/27/23 17:45 Historian: patient Exam Limitations: no limitations Patient Subjective Stated Complaint: C/O Left sided abdominal pain (intermittent) with rectal and vaginal bleeding. Rectal bleeding started on Saturday, stopped yesterday, then returned today. Abdominal pain and vaginal bleeing started yesterday. States bleeding is bright red in color. States vaginal bleeding is intermittent with no clots and rectal bleeding today is less intermittent with some small, bright red clots. Denies rectal or vaginal pain. Triage Nursing Assessment: Patient ambulated back to ER. She is alert and bonnie ented. No cough. No SOB. Patient is pale. TABBY PAYTON. Physician History: Please a 47-year-old female presents emergency department for evaluation of left-sided abdominal pain. Patient states transvaginal and likely rectal bleeding. No active bleeding during her ER visit here. Symptoms started 3 days ago. No trauma no fever. No nausea vomiting or diaphoresis. Symptoms are mild to moderate in intensity. No specific worsening or improving factors. Patient declined pain medication. She voices no other complaints or concerns at this time. Portions of this note were created with voice recognition technology. There may be grammatical, spelling, punctuation or sound alike errors. Timing/Duration: day(s) (3 days ago) Activities at Onset: none Quality: aching Abdominal Pain Onset Location: other (Left flank) Pain Radiation: no radiation Severity of Pain-Max: moderate Severity of Pain-Current: mild Modifying Factors: Improves With: nothing Associated Symptoms: denies symptoms Previous symptoms: no prior history Allergies/Adverse Reactions: Penicillins Allergy (Mild, Verified 08/27/23 17:52) Rash acetaminophen [From [place]] Allergy (Verified 08/27/23 17:52) fentanyl Allergy (Verified 08/27/23 17:52) hydrocodone [From [place]] Allergy (Verified 08/27/23 17:52) Home Medications: Eszopiclone [Lunesta] 1 tab PO HS 08/27/23 [History] Levothyroxine Sodium [Synthroid] 1 tab PO DAILY 08/27/23 [History] Phentermine HCl [Adipex-P] 1 tab PO DAILY 08/27/23 [History] Hx Tetanus, Diphtheria Vaccination/Date Given: Yes Hx Influenza Vaccination/Date Given: No Hx Pneumococcal Vaccination/Date Given: No Immunizations Up to Date: Yes Travel Risk - International Travel Have you traveled outside of the country in past 3 weeks: No - Coronavirus Screening Are you exhibiting any of the following symptoms?: No Close contact with a COVID-19 positive Pt in past 14-21 Days: No - Vaccine Status Have you recieved a Covid-19 vaccination: No - Review of Systems Constitutional: No Symptoms, No Fever, No Chills Eyes: No Symptoms Ears, Nose, & Throat: No Symptoms Respiratory: No Symptoms, No Cough, No Dyspnea Cardiac: No Symptoms, No Chest Pain, No Edema, No Syncope Abdominal/Gastrointestinal: No Symptoms, No Abdominal Pain, No Nausea, No Vomiting, No Diarrhea Genitourinary Symptoms: No Symptoms, No Dysuria Musculoskeletal: No Symptoms, No Back Pain, No Neck Pain Skin: No Symptoms, No Rash Neurological: No Symptoms, No Dizziness, No Focal Weakness, No Sensory Changes Psychological: No Symptoms Endocrine: No Symptoms Hematologic/Lymphatic: No Symptoms Immunological/Allergic: No Symptoms All Other Systems: Reviewed and Negative - Past Medical History Pertinent Past Medical History: Yes Neurological History: No Pertinent History ENT History: No Pertinent History Cardiac History: No Pertinent History Respiratory History: No Pertinent History Endocrine Medical History: Hypothyroidism Musculoskeletal History: Arthritis GI Medical History: Diverticulosis, Other History: No Pertinent History Psycho-Social History: Anxiety Female Reproductive Disorders: Abnormal Uterine Bleeding Other Medical History: KIDNEY CANCER DX 03/11/22 AND HAD KIDNEY LEFT REMOVED 05/22/22. - Past Surgical History Past Surgical History: Yes Neuro Surgical History: No Pertinent History Cardiac: No Pertinent History Respiratory: No Pertinent History Gastrointestinal: No Pertinent History Genitourinary: Kidney Surgery Musculoskeletal: No Pertinent History Female Surgical History: No Pertinent History Other Surgical History: Right carpal tunnel, left kidney removed, biopsy of left and right breast - Social History Smoking Status: Former smoker How long have you smoked: 20 YEARS Exposure to second hand smoke: No Alcohol Use: None Drug Use: none Patient Lives Alone: Yes Significant Family History: no pertinent family hx - Female History Hx Last Menstrual Period: 2019 Hx Now: No - Nursing Vital Signs Nursing Vital Signs: Initial Vital Signs Temperature 98.6 F 08/27/23 17:38 Pulse Rate 93 H 08/27/23 17:38 Respiratory Rate 16 08/27/23 17:38 Blood Pressure 150/85 08/27/23 17:38 O2 Sat by Pulse Oximetry 99 08/27/23 17:38 Pain Scale Pain Intensity 3 - Physical Exam General Appearance: no apparent distress, alert Eye Exam: PERRL/EOMI, eyes nml inspection Ears, Nose, Throat Exam: normal ENT inspection, pharynx normal, moist mucous membranes Neck Exam: normal inspection, non-tender, supple, full range of motion Respiratory Exam: normal breath sounds, lungs clear, No respiratory distress Cardiovascular Exam: regular rate/rhythm, normal heart sounds Gastrointestinal/Abdomen Exam: soft, No tenderness, No mass Back Exam: normal inspection, normal range of motion, No CVA tenderness, No vertebral tenderness Extremity Exam: normal inspection, normal range of motion, pelvis stable Neurologic Exam: alert, oriented x 3, cooperative, normal mood/affect, nml cerebellar function, sensation nml, No motor deficits Skin Exam: normal color, warm, dry Lymphatic Exam: No adenopathy SpO2 Interpretation: normal SpO2: 99 O2 Delivery: Room Air - Course Nursing assessment & vital signs reviewed: Yes - CT Exams Abdomen/Pelvis CT Interpretation: Tele-radiologist Report (Again sigmoid diverticulosis normal appendix absent left kidney no new acute findings) Ordered Tests: Active Orders 24 hr Category Date Time Status IV Insertion STAT Care 08/27/23 18:29 Active ABDOMEN AND PELVIS W/0 CONTRAS [CT] Stat Exams 08/27/23 18:29 Taken CBC W DIFF Stat Lab 08/27/23 18:25 Completed CMP Stat Lab 08/27/23 18:25 Completed UA W/RFX UR CULTURE Stat Lab 08/27/23 18:33 Completed Lab/Rad Data: Laboratory Result Diagrams 08/27/23 18:25 08/27/23 18:25 Laboratory Results 08/27/23 08/27/23 08/27/23 Range/Units 18:33 18:25 18:25 WBC 8.4 (4.0-10.5) x10^3/uL RBC 4.93 (4.1-5.4) x10^6/uL Hgb 14.2 (12.0-16.0) g/dL Hct 44.8 (35-47) % MCV 90.9 (78-100) fL MCH 28.8 (26-32) pg MCHC 31.7 L (32-36) g/dL RDW 13.8 (11.5-14.0) % Plt Count 259 (150-450) x10^3/uL MPV 10.5 (7.5-11.0) fL Gran % 68.5 H (36.0-66.0) % Immature Gran % (Auto) 0.2 (0.00-0.4) % Nucleat RBC Rel Count 0.0 (0.00-0.1) % Eos # (Auto) 0.40 (0-0.5) x10^3/uL Immature Gran # (Auto) 0.02 (0.00-0.03) x10^3u/L Absolute Lymphs (auto) 1.48 (1.0-4.6) x10^3/uL Absolute Monos (auto) 0.70 (0.0-1.3) x10^3/uL Absolute Nucleated RBC 0.00 (0.00-0.01) x10^3u/L Lymphocytes % 17.6 L (24.0-44.0) % Monocytes % 8.3 (0.0-12.0) % Eosinophils % 4.8 (0.00-5.0) % Basophils % 0.6 (0.0-0.4) % Absolute Granulocytes 5.77 (1.4-6.9) x10^3/uL Basophils # 0.05 (0-0.4) x10^3/uL Sodium 137 (137-145) mmol/L Potassium 4.2 (3.5-5.1) mmol/L Chloride 104 (98-107) mmol/L Carbon Dioxide 25 (22-30) mmol/L Anion Gap 12.0 (5-15) MEQ/L BUN 13 (7-17) mg/dL Creatinine 1.27 H (0.52-1.04) mg/dL Estimated GFR 52.2 ML/MIN Glucose 109 H (74-106) mg/dL Calcium 9.1 (8.4-10.2) mg/dL Total Bilirubin 0.60 (0.2-1.3) mg/dL AST 28 (14-36) U/L ALT 25 (0-35) U/L Alkaline Phosphatase 65 (38-126) U/L Serum Total Protein 7.9 (6.3-8.2) g/dL Albumin 4.2 (3.5-5.0) g/dL Urine Color Yellow (Yellow) Urine Appearance Clear (Clear) Urine pH 6.5 (4.6-8.0) Ur Specific [place] 1.010 (1.005-1.030) Urine Protein Negative (Negative) Urine Glucose (UA) Negative (Negative) mg/dL Urine Ketones Negative (Negative) Urine Blood Negative (Negative) Urine Nitrite Negative (Negative) Urine Bilirubin Negative (Negative) Urine Urobilinogen 0.2 (0.2) mg/dL Ur Leukocyte Esterase Negative (Negative) U Hyaline Cast (Auto) NONE SEEN (0-2) /LPF Urine Microscopic RBC 0-2 (0-5) /HPF Urine Microscopic WBC 0-2 (0-5) /HPF Ur Epithelial Cells Few (None Seen) /HPF Urine Bacteria None Seen (None Seen) /HPF Urine Culture Reflexed NO (NO) - Progress Progress: improved Progress Note: 47-year-old female presents to emergency department for evaluation of left-sided abdominal pain. Patient declined pain medication. CBC CMP essentially unremarkable. Patient has 1 kidney. Patient had a left-sided nephrectomy in the past. Creatinine slightly elevated. Patient is aware of this. Patient currently follows up with a medical claims specialist regarding her elevated creatinine. It is currently at her baseline however. CT abdomen pelvis shows no acute pathology. Urinalysis negative for urinary tract infection. No active bleeding at this time. Patient will follow-up with her primary care doctor for colonoscopy. Patient also has an appointment scheduled with her [facility] physician on 03 September. Patient that she is ready for discharge. She voices no other complaints or concerns at this time. Portions of this note were created with voice recognition technology. There may be grammatical, spelling, punctuation or sound alike errors Complexity of problems addressed is moderate acute complicated No critical care time Complex of data reviewed and analyzed is moderate. Test ordered test reviewed. Results were analyzed and correlated clinically. Risk of complication and or risk of morbidity/mortality of patient management is low. Vital stable. Time spent to discharge patient is approximately 10 minutes. Plan of care established for shared decision making. No social determinants of health present impede follow-up. Portions of this note were created with voice recognition technology. There may be grammatical, spelling, punctuation or sound alike errors 08/27/23 21:56 Counseled pt/family regarding: lab results, diagnosis, need for follow-up, rad results - Departure Departure Disposition: Home Clinical Impression: Abdominal pain, Diverticulosis, Elevated serum creatinine Condition: Stable Critical Care Time: No Referrals: NEIL HERNANDEZ [Primary Care Provider] - Follow up/PCP as directed Additional Instructions: Discharge/Care Plan LAURYN QUIÑONES was seen on 08/27/23 in the Emergency Room. The patient was counseled regarding Diagnosis,Lab results, Imaging studies, need for follow up and when to return to the Emergency Room. Prescriptions given: Discharge Note I have spoken with the patient and/or caregivers. I have explained the patient's condition, diagnosis and treatment plan based on the information available to me at this time. I have answered the patient's and/or caregiver's questions and addressed any concerns. The patient and/or caregivers have as good understanding of the patient's diagnosis, condition and treatment plan as can be expected at this point. The vital signs have been stable. The patient's condition is stable and appropriate for discharge from the emergency department. The patient will pursue further outpatient evaluation with the primary care physician or other designated or consulting physician as outlined in the discharge instructions. The patient and/or caregivers are agreeable to this plan of care and follow-up instructions have been explained in detail. The patient and/or caregivers have received these instruction. The patient/and or caregivers are aware that any significant change in condition or worsening of symptoms should prompt an immediate return to this or the closest emergency department or call 911.
--- NOTE | 2023-08-28 08:39 | XRAY ---
Indication: Abdomen pain and bleeding. Multiple contiguous axial images obtained through the abdomen and pelvis without contrast. Comparison: May 26, 2023 Lung bases clear. Heart not enlarged. Noncontrasted stomach and bowel loops nonobstructed again with normal appendix and minimal descending/sigmoid diverticulosis. Again left total nephrectomy. No free fluid/air. Remaining liver, gallbladder, pancreas, spleen, adrenal glands, right kidney, right ureter, bladder, uterus, and aorta are unremarkable for noncontrast exam. Osseous structures intact. Impression: Again colonic diverticulosis without diverticulitis. Remaining CT abdomen/pelvis without contrast exam is negative.
== END 2023-08-27 21:59 | disposition home or self-care (01) ==
LOC: ED 17:38
DX: K57.30 Diverticulosis of large intestine without perforation or abscess without bleeding (principal); R10.9 Unspecified abdominal pain; R79.89 Other specified abnormal findings of blood chemistry; Z79.899 Other long term (current) drug therapy; Z28.310 Unvaccinated for COVID-19
CPT/HCPCS: 36000; 36415; 74176; 80053; 81001; 85025; 99284

== ENCOUNTER 2024-07-31 06:21 | Day surgery (SDC) | payer OTHER ==
[2024-07-31 07:17] LABS: HCG URINE TEST NEGATIVE (NEGATIVE)
[2024-07-31] MEDS ORDERED: Xylocaine-Mpf 2% 5 Ml Vial ONE (07:28)
[2024-07-31] MEDS ORDERED: DIPRIVAN 200 MG/20 ML IV ONE ×2 (07:28→07:43)
[2024-07-31] MEDS: Lactated Ringers 1,000 ML IV SCH (08:15)
[2024-07-31 08:18] VITALS: RESP 16
[2024-07-31 08:46] VITALS: BP 121/92; PULSE 80; TEMP 97.8; O2SAT 99
--- NOTE | 2024-08-02 18:32 | OP ---
SURGERY DATE/TIME: 07/31/2024 0800- PREOPERATIVE DIAGNOSIS: Screening exam. POSTOPERATIVE DIAGNOSES: 1) Mild diverticulosis. 2) External hemorrhoids. 3) Otherwise, normal colon. PROCEDURE: Colonoscopy. SURGEON: Oscar Perera MD ANESTHESIA: Medication given by the Anesthesia department. HISTORY: The patient is a 48-year-old white female who presents for screening colonoscopy. The patient was appraised of the risks of the procedure and the risk of perforation, phlebitis, untoward reaction to medication, bleeding and missed lesions. The patient verbalized her understanding and desired to have procedure performed. DESCRIPTION OF PROCEDURE AND FINDINGS: Patient was given medication by the Anesthesia department. She had continuous pulse oximetry, ECG monitoring, and intermittent blood pressure monitoring during the examination. She was placed in the left lateral decubitus position. Digital rectal examination was performed revealing large amounts of external hemorrhoids, normal anal sphincter tone, and no masses otherwise. The flexible Olympus pediatric colonoscope was used to intubate the rectum. A view of the colon was developed sequentially to the cecum. Upon insertion and withdrawal, was noted mild diverticulosis throughout the colon. No other mucosal lesions were encountered. The scope was removed. The patient tolerated the procedure well. Patient was sent back to outpatient recovery in good condition. The prep was noted to be fair to good.
== END 2024-07-31 08:45 | disposition home or self-care (01) ==
LOC: SDC 06:21
PROVIDERS: ATTEND Family Medicine
DX: Z12.11 Encounter for screening for malignant neoplasm of colon (principal); K57.30 Diverticulosis of large intestine without perforation or abscess without bleeding; K64.4 Residual hemorrhoidal skin tags
CPT/HCPCS: 81025; J2704

== ENCOUNTER 2024-08-09 09:10 | Emergency (ER) | payer OTHER ==
--- NOTE | 2024-08-09 09:15 | ERPHSYRPT ---
- History of Present Illness Time Seen by Provider: 08/09/24 09:15 Historian: patient, family Exam Limitations: no limitations Physician History: Pt had colonoscopy as routine screening on Jul 31 and has been feeling sick this week with onset today earlier of BRBPR x2 Vomiting, and LLQ ABd pain. No biopsy or polyps known per pt on colonoscopy but diverticulosis found at that time. Tender LLQ without rebound or peritoneal signs. CHest clear Ht reg without M. Normal mental status. Discussed with pt and available family risk/benefits of testing and Tx with IV, Zofran Morphine ( previously tolerated without problems) CBC, CMP, UA, CT Abd, Lactate, HCG, Sharla, Lipase, and they wish to proceed; these are ordered, Results discussed. Timing/Duration: today Activities at Onset: sleep Quality: cramping, sharpness, stabbing Abdominal Pain Onset Location: LLQ Pain Radiation: LLQ Severity of Pain-Max: moderate Severity of Pain-Current: moderate Modifying Factors: Improves With: nothing Associated Symptoms: nausea, vomiting Previous symptoms: no prior history Allergies/Adverse Reactions: Penicillins Allergy (Mild, Verified 08/09/24 09:29) Rash acetaminophen [From [place]] Allergy (Verified 08/09/24 09:29) fentanyl Allergy (Verified 08/09/24 09:29) hydrocodone [From [place]] Allergy (Verified 08/09/24 09:29) Home Medications: Eszopiclone [Lunesta] 3 mg PO HS 08/27/23 [History] Levothyroxine Sodium [Synthroid] 125 mcg PO DAILY 08/27/23 [History] Ergocalciferol (Vitamin D2) [Vitamin D2] 50,000 unit PO Q7D 07/22/24 [History] Phentermine HCl [Adipex-P] 37.5 mg PO DAILY 07/31/24 [History] Hx Tetanus, Diphtheria Vaccination/Date Given: Yes Hx Influenza Vaccination/Date Given: No Hx Pneumococcal Vaccination/Date Given: No Travel Risk - Emerging Infectious Disease Are you exhibiting symptoms associated with any current EIDs: No - Review of Systems Constitutional: No Fever, No Chills Eyes: No Symptoms Ears, Nose, & Throat: No Symptoms Respiratory: No Cough, No Dyspnea Cardiac: No Chest Pain, No Edema, No Syncope Abdominal/Gastrointestinal: Abdominal Pain, Nausea, Vomiting, No Diarrhea Genitourinary Symptoms: No Dysuria Musculoskeletal: No Back Pain, No Neck Pain Skin: No Rash Neurological: No Dizziness, No Focal Weakness, No Sensory Changes Psychological: No Symptoms Endocrine: No Symptoms Hematologic/Lymphatic: No Symptoms Immunological/Allergic: No Symptoms All Other Systems: Reviewed and Negative - Past Medical History Pertinent Past Medical History: Yes Neurological History: No Pertinent History ENT History: No Pertinent History Cardiac History: No Pertinent History Respiratory History: No Pertinent History Endocrine Medical History: Hypothyroidism Musculoskeletal History: Arthritis GI Medical History: Diverticulosis, Hernia, Other History: Other Psycho-Social History: Anxiety Female Reproductive Disorders: Abnormal Uterine Bleeding Other Medical History: KIDNEY CANCER DX 03/11/22 AND HAD KIDNEY LEFT REMOVED 05/22/22. ANEMIA - Past Surgical History Past Surgical History: Yes Neuro Surgical History: No Pertinent History Cardiac: No Pertinent History Respiratory: No Pertinent History Gastrointestinal: No Pertinent History Genitourinary: Kidney Surgery Musculoskeletal: No Pertinent History Female Surgical History: No Pertinent History Other Surgical History: Right carpal tunnel, left kidney removed, biopsy of left and right breast Significant Family History: no pertinent family hx - Female History Hx Last Menstrual Period: over a year ago - Social History Smoking Status: Former smoker How long have you smoked: 20 YEARS Exposure to second hand smoke: No Alcohol Use: None Drug Use: none Patient Lives Alone: Yes - Nursing Vital Signs Nursing Vital Signs: Initial Vital Signs Temperature 97.2 F 08/09/24 09:18 Pulse Rate 84 08/09/24 09:18 Respiratory Rate 18 08/09/24 09:18 Blood Pressure 159/110 08/09/24 09:18 O2 Sat by Pulse Oximetry 100 08/09/24 09:18 Pain Scale Pain Intensity 3 - Physical Exam General Appearance: no apparent distress, alert Eye Exam: PERRL/EOMI, eyes nml inspection Ears, Nose, Throat Exam: normal ENT inspection, pharynx normal, moist mucous me mbranes Neck Exam: normal inspection, non-tender, supple, full range of motion Respiratory Exam: normal breath sounds, lungs clear, No respiratory distress Cardiovascular Exam: regular rate/rhythm, normal heart sounds Gastrointestinal/Abdomen Exam: soft, tenderness (LLQ), No distention, No mass, No pulsatile mass, No rebound Pelvic Exam: deferred Rectal Exam: hemorrhoids (not actively bleeding but trace of blood present around hemorrhoids), other Back Exam: normal inspection, normal range of motion, No CVA tenderness, No vertebral tenderness Extremity Exam: normal inspection, normal range of motion, pelvis stable Neurologic Exam: alert, oriented x 3, cooperative, normal mood/affect, nml cerebellar function, sensation nml, No motor deficits Skin Exam: normal color, warm, dry - Course Nursing assessment & vital signs reviewed: Yes - CT Exams Abdomen/Pelvis CT Interpretation: Tele-radiologist Report, Normal Appendix, Other (fatty liver, right renal cyst, left ovarian cyst) - Radiology Ultrasound Exam Pelvis Ultrasound: negative, No Torsion/Nml Flow, Other (left ov cyst) Ordered Tests: Active Orders 24 hr Category Date Time Status IV Insertion STAT Care 08/09/24 09:32 Active ABDOMEN AND PELVIS W/0 CONTRAS [CT] Stat Exams 08/09/24 09:58 Completed PELVIS TRANS VAGINAL [US] Stat Exams 08/09/24 12:46 Taken AMYLASE Stat Lab 08/09/24 09:30 Completed CBC W DIFF Stat Lab 08/09/24 09:30 Completed CMP Stat Lab 08/09/24 09:30 Completed HCG QUALITATIVE, SERUM Stat Lab 08/09/24 09:30 Completed LIPASE Stat Lab 08/09/24 09:30 Completed Lactic Acid Stat Lab 08/09/24 09:40 Completed UA W/RFX UR CULTURE Stat Lab 08/09/24 09:54 Completed Medication Summary Discontinued Medications Generic Name Dose Route Start Last Admin Trade Name Hiral PRN Reason Stop Dose Admin Ciprofloxacin 500 mg 08/09/24 11:14 08/09/24 11:16 Ciprofloxacin 500 Mg Tablet PO 08/09/24 11:15 500 mg STAT ONE Administration Ciprofloxacin Confirm 08/09/24 11:16 Ciprofloxacin 500 Mg Tablet Administered 08/09/24 11:17 Dose 500 mg .ROUTE .STK-MED ONE Metronidazole 500 mg 08/09/24 11:14 08/09/24 11:17 Metronidazole 500 Mg Tablet PO 08/09/24 11:15 500 mg STAT ONE Administration Metronidazole Confirm 08/09/24 11:17 Metronidazole 500 Mg Tablet Administered 08/09/24 11:18 Dose 500 mg .ROUTE .STK-MED ONE Morphine Sulfate 4 mg 08/09/24 09:32 08/09/24 09:50 Morphine Sulfate 4 Mg/Ml Injection IV 08/09/24 09:33 4 mg STAT ONE Administration Morphine Sulfate Confirm 08/09/24 09:47 Morphine Sulfate 4 Mg/Ml Injection Administered 08/09/24 09:48 Dose 4 mg .ROUTE .STK-MED ONE Ondansetron HCl 4 mg 08/09/24 09:32 08/09/24 09:49 Ondansetron Hcl 4 Mg/2 Ml Vial IV 08/09/24 09:33 4 mg STAT ONE Administration Ondansetron HCl Confirm 08/09/24 09:47 Ondansetron Hcl 4 Mg/2 Ml Vial Administered 08/09/24 09:48 Dose 4 mg .ROUTE .STK-MED ONE Lab/Rad Data: Laboratory Result Diagrams 08/09/24 09:30 08/09/24 09:30 Laboratory Results 08/09/24 08/09/24 08/09/24 Range/Units 09:54 09:40 09:30 WBC (3.98-10.04) x10^3/uL RBC (3.93-5.22) x10^6/uL Hgb (11.2-15.7) g/dL Hct (34.1-44.9) % MCV (79.4-94.8) fL MCH (25.6-32.2) pg MCHC (32.2-35.5) g/dL RDW (11.7-14.4) % Plt Count (182-369) x10^3/uL MPV (9.4-12.3) fL Gran % (34.0-71.1) % Immature Gran % (Auto) (0.001-0.429) % Nucleat RBC Rel Count (0.00-0.2) % Eos # (Auto) (0.04-0.36) x10^3/uL Immature Gran # (Auto) (0.001-0.031) x10^3u/L Absolute Lymphs (auto) (1.18-3.74) x10^3/uL Absolute Monos (auto) (0.24-0.86) x10^3/uL Absolute Nucleated RBC (0.00-0.012) x10^3u/L Lymphocytes % (19.3-51.7) % Monocytes % (4.7-12.5) % Eosinophils % (0.7-5.8) % Basophils % (0.1-1.2) % Absolute Granulocytes (1.56-6.13) x10^3/uL Basophils # (0.01-0.08) x10^3/uL Sodium (135-145) mmol/L Potassium (3.5-5.1) mmol/L Chloride (98-107) mmol/L Carbon Dioxide (22-30) mmol/L Anion Gap (5-15) MEQ/L BUN (7-17) mg/dL Creatinine (0.52-1.04) mg/dL Estimated GFR ML/MIN Glucose (74-106) mg/dL Lactic Acid 1.3 (0.4-2.0) Calcium (8.4-10.2) mg/dL Total Bilirubin (0.2-1.3) mg/dL AST (14-36) U/L ALT (0-35) U/L Alkaline Phosphatase (38-126) U/L Serum Total Protein (6.3-8.2) g/dL Albumin (3.5-5.0) g/dL Amylase (30-110) U/L Lipase (23-300) U/L Serum HCG, Qual NEGATIVE (NEGATIVE) Urine Color Yellow (Yellow) Urine Appearance Clear (Clear) Urine pH 6.5 (4.6-8.0) Ur Specific [place] 1.015 (1.005-1.030) Urine Protein Negative (Negative) Urine Glucose (UA) Negative (Negative) mg/dL Urine Ketones Negative (Negative) Urine Blood Negative (Negative) Urine Nitrite Negative (Negative) Urine Bilirubin Negative (Negative) Urine Urobilinogen 0.2 (0.2) mg/dL Ur Leukocyte Esterase Negative (Negative) U Hyaline Cast (Auto) NONE SEEN (0-2) /LPF Urine Microscopic RBC 0-2 (0-5) /HPF Urine Microscopic WBC 3-5 (0-5) /HPF Ur Epithelial Cells Few (None Seen) /HPF Urine Bacteria Few A (None Seen) /HPF Urine Culture Reflexed NO (NO) 08/09/24 08/09/24 Range/Units 09:30 09:30 WBC 10.8 H (3.98-10.04) x10^3/uL RBC 4.95 (3.93-5.22) x10^6/uL Hgb 14.7 (11.2-15.7) g/dL Hct 44.8 (34.1-44.9) % MCV 90.5 (79.4-94.8) fL MCH 29.7 (25.6-32.2) pg MCHC 32.8 (32.2-35.5) g/dL RDW 13.6 (11.7-14.4) % Plt Count 236 (182-369) x10^3/uL MPV 10.5 (9.4-12.3) fL Gran % 75.7 H (34.0-71.1) % Immature Gran % (Auto) 0.4 (0.001-0.429) % Nucleat RBC Rel Count 0.0 (0.00-0.2) % Eos # (Auto) 0.53 H (0.04-0.36) x10^3/uL Immature Gran # (Auto) 0.04 H (0.001-0.031) x10^3u/L Absolute Lymphs (auto) 1.50 (1.18-3.74) x10^3/uL Absolute Monos (auto) 0.49 (0.24-0.86) x10^3/uL Absolute Nucleated RBC 0.00 (0.00-0.012) x10^3u/L Lymphocytes % 13.9 L (19.3-51.7) % Monocytes % 4.5 L (4.7-12.5) % Eosinophils % 4.9 (0.7-5.8) % Basophils % 0.6 (0.1-1.2) % Absolute Granulocytes 8.17 H (1.56-6.13) x10^3/uL Basophils # 0.07 (0.01-0.08) x10^3/uL Sodium 137 (135-145) mmol/L Potassium 4.0 (3.5-5.1) mmol/L Chloride 103 (98-107) mmol/L Carbon Dioxide 25 (22-30) mmol/L Anion Gap 13.7 (5-15) MEQ/L BUN 18 H (7-17) mg/dL Creatinine 1.54 H (0.52-1.04) mg/dL Estimated GFR 41.1 ML/MIN Glucose 122 H (74-106) mg/dL Lactic Acid (0.4-2.0) Calcium 9.6 (8.4-10.2) mg/dL Total Bilirubin 0.60 (0.2-1.3) mg/dL AST 35 (14-36) U/L ALT 36 H (0-35) U/L Alkaline Phosphatase 55 (38-126) U/L Serum Total Protein 8.1 (6.3-8.2) g/dL Albumin 4.4 (3.5-5.0) g/dL Amylase 108 (30-110) U/L Lipase 143 (23-300) U/L Serum HCG, Qual (NEGATIVE) Urine Color (Yellow) Urine Appearance (Clear) Urine pH (4.6-8.0) Ur Specific [place] (1.005-1.030) Urine Protein (Negative) Urine Glucose (UA) (Negative) mg/dL Urine Ketones (Negative) Urine Blood (Negative) Urine Nitrite (Negative) Urine Bilirubin (Negative) Urine Urobilinogen (0.2) mg/dL Ur Leukocyte Esterase (Negative) U Hyaline Cast (Auto) (0-2) /LPF Urine Microscopic RBC (0-5) /HPF Urine Microscopic WBC (0-5) /HPF Ur Epithelial Cells (None Seen) /HPF Urine Bacteria (None Seen) /HPF Urine Culture Reflexed (NO) - Progress Progress: improved, re-examined Progress Note: 08/09/24 11:16 Discussed with pt and family findings and that could be early diverticulitis but that we have not determined a specific cause for her pain and bleeding and they understand and are comfortable with trial of AB outpt rather than further eval in ER or admission and have the capacity to make this choice. They also wish to proceed with US to rule out ovarian torsion after discussion of risk/benefit. 08/09/24 16:36 Claire bolden and kathryn for this in past and they wish to proceed. Counseled pt/family regarding: lab results, diagnosis, need for follow-up, rad results Medical Desision Making - Independent Historian Additional History obtained from: Family - Discussion of managment Reviewed:: Test results, Need for additional workup Agreed on:: Treatment plan, need for follow-up - Diagnostic Testing Diagnostic test were ordered, analyzed, and reviewed by me: Yes Radiological Interpretation: Interpreted by me, Reviewed by me - Risk of complications The pt has a mod risk of morbidity or mortality based on: Need for prescription drug management The pt has a high risk of morbidity or mortality based on: Decision regarding hospitilization or escalation of hosp level of care - Departure Departure Disposition: Home Clinical Impression: Abdominal pain, Diverticulosis, External hemorrhoids, Hematochezia Condition: Good Critical Care Time: No Referrals: NEIL HERNANDEZ [Primary Care Provider] - Follow up/PCP as directed Instructions: Severe Abdominal Pain, Adult (DC), Diverticulitis, Kidney Stone, Adult ED, Metabolic dysfunction-associated steatotic liver disease Additional Instructions: We have not determined an exact cause for your symptoms and there could be other conditions developing so follow-up with your Drs is important this week. THere is a kidney stone and cyst, and an ovarian cysts as well as fatty liver to follow-up. with elevated kidney and liver tests. We will treat what could be early diverticulitis. Return meantime if not improving, vomiting, fever, dizziness or other symptoms of concern. Also followup[ for your elevated blood pressure with your Drs. and return meantime if any chest pain, diziness, shortness or breath or other symptoms of concern. Prescriptions: Ciprofloxacin [Cipro 500 MG] 500 mg PO BID #20 tablet Metronidazole 500 mg [Flagyl 500 MG] 500 mg PO TID #30 tablet
[2024-08-09 09:19] VITALS: TEMP 97.2
[2024-08-09 09:45] LABS: Absolute Neutrophil Ct (ANC) 8.17 x10^3/uL (1.56-6.13); BASOPHIL % 0.6 % (0.1-1.2); Basophil (Absolute #) 0.07 x10^3/uL (0.01-0.08); Eosinophil % 4.9 % (0.7-5.8); Eosinophil (Absolute #) 0.53 x10^3/uL (0.04-0.36); Hematocrit 44.8 % (34.1-44.9); Hemoglobin 14.7 g/dL (11.2-15.7); IMMATURE GRAN # 0.04 x10^3u/L (0.001-0.031); IMMATURE GRAN % 0.4 % (0.001-0.429); Lymphocytes % 13.9 % (19.3-51.7); Mean Cell Volume 90.5 fL (79.4-94.8); Mean Corpuscular Hemoglobin 29.7 pg (25.6-32.2); Mean Corpuscular Hgb Concent. 32.8 g/dL (32.2-35.5); Mean Platelet Volume 10.5 fL (9.4-12.3); Monocyte (Absolute #) 0.49 x10^3/uL (0.24-0.86); Monocytes % 4.5 % (4.7-12.5); Neutrophil % 75.7 % (34.0-71.1); Platelet Count 236 x10^3/uL (182-369); Red Blood Count 4.95 x10^6/uL (3.93-5.22); Red Cell Distribution Width 13.6 % (11.7-14.4); White Blood Count 10.8 x10^3/uL (3.98-10.04)
[2024-08-09] MEDS ORDERED: MORPHINE SULFATE 4 MG INJ ONE (09:47)
[2024-08-09] MEDS ORDERED: Zofran 4 MG/2 ML VIAL ONE (09:47)
[2024-08-09] MEDS: Zofran 4 MG/2 ML VIAL IV ONE (09:49)
[2024-08-09] MEDS: MORPHINE SULFATE 4 MG INJ IV ONE (09:50)
[2024-08-09 09:54] LABS: HCG SERUM TEST NEGATIVE (NEGATIVE)
[2024-08-09 09:57] LABS: ALBUMIN 4.4 g/dL (3.5-5.0); ANION GAP 13.7 MEQ/L (5-15); BILIRUBIN,TOTAL 0.6 mg/dL (0.2-1.3); Calcium 9.6 mg/dL (8.4-10.2); Creatinine 1 1.54 mg/dL (0.52-1.04); EST GLOMERULAR FILTRATION RATE 41.1 ML/MIN; Total Protein 8.1 g/dL (6.3-8.2)
[2024-08-09 10:48] LABS: Appearance Clear (Clear); Bacteria Few /HPF (None Seen); Bilirubin Negative (Negative); Blood Negative (Negative); Epithelial Cells Few /HPF (None Seen); Glucose, Urine Negative (Negative); Hyaline Casts NONE SEEN /LPF (0-2); Ketones Negative (Negative); Leukocyte Esterase Negative (Negative); Nitrite Negative (Negative); Ph 6.5 (4.6-8.0); Protein,Urine Dip Negative (Negative); RBC 0-2 /HPF (0-5); Specific Gravity 1.015 (1.005-1.030); Urobilinogen 0.2 mg/dL (0.2)
--- NOTE | 2024-08-09 11:01 | XRAY ---
CLINICAL HISTORY: abd pain and tenderness LLQ BRBPR COMPARISON: TECHNIQUE: CT of the abdomen and pelvis was performed with and without contrast, with the following protocol: axial images with, and reconstructed coronal and sagittal images. One of the subsequent dose reduction techniques was utilized for this exam: Automated exposure control, adjustment of the mA and kV according to patient size, and use of iterative reconstruction. CTDI: 15.25 mGy. FINDINGS: Abdomen: Liver: Enlarged liver, right lobe span is 19.3 cm with reduced attenuation. No focal lesions, cysts, or masses were identified. Hepatic vasculature and biliary ducts are unremarkable. Gallbladder and Biliary System: The gallbladder is normal in size and shape. No wall thickening, pericholecystic fluid, or gallstones were identified. The common bile duct is normal in caliber without dilation. Pancreas: Pancreatic head, body, and tail are visualized and appear normal in size and density. No pancreatic masses or calcifications were noted. The pancreatic duct is not dilated. Spleen: Normal in size, shape, and density. No splenic lesions or masses were identified. Kidneys and Adrenal Glands: Non-visualized left kidney could be surgically removed. A tiny right renal nonobstructing calculus was noted. The right renal cortical cyst measures 20 mm. The right kidney is normal in size, shape, and position. Cortical thickness is within normal limits. No hydronephrosis. Adrenal glands are unremarkable with no evidence of masses or hyperplasia. Appendix: The appendix is normal. Pelvis: Urinary Bladder: Normal in contour and wall thickness. No intraluminal lesions were identified. Uterus: Normal in size and contour. No masses or abnormal thickening. Ovaries: A small left ovarian cyst measures 19 mm. Vagina: Normal in contour and wall thickness. Cervix: No evidence of mass or abnormal thickening. Peritoneal and Retroperitoneal Structures: No free fluid or abnormal fluid collections were identified within the abdomen or pelvis. No lymphadenopathy was noted. Bowel: Few sigmoid colonic diverticulosis with faint fat planes stranding. The visualized bowel loops are normal in caliber and appearance. No evidence of bowel obstruction or wall thickening. Bones and Soft Tissues: Pelvic bones and soft tissues are unremarkable. No fractures or abnormal masses were identified. Tiny calcific foci were noted in both breasts. Tiny omental fat containing umbilical hernia. IMPRESSION: 1. Few sigmoid colonic diverticulosis with faint fat strandings could be residual past infection, regression compared to the prior scan. 2. Right renal cortical cyst. Stable. 3. Tiny right renal non-obstructing calculus. New finding. 4. Absent left kidney, likely surgical removal.Stable. 5. Fatty hepatomegaly.Stable. 6. A small left ovarian cyst measures 19 mm, ultrasound correlation is needed. Stable. Electronically Signed by: Jen Ramirez MD. (08/09/2024 10:58:09 EDT)
[2024-08-09] MEDS ORDERED: Cipro 500 MG ONE (11:16)
[2024-08-09] MEDS: Cipro 500 MG PO ONE (11:16)
[2024-08-09] MEDS: Flagyl 500 MG PO ONE (11:17)
[2024-08-09] MEDS ORDERED: Flagyl 500 MG ONE (11:17)
[2024-08-09 16:26] VITALS: PULSE 69; RESP 15; O2SAT 97
[2024-08-09 16:55] VITALS: BP 158/97
--- NOTE | 2024-08-09 19:16 | XRAY ---
Indication: Left lower quadrant pain. Ovary cysts. Two-dimensional transvaginal pelvic sonogram performed. Comparison: October 14, 2019 Uterus anteverted measuring 7.7 x 5.6 x 5.1 cm. 7 mm cervical nabothian cyst. No other focal solid/cystic uterine mass. Endometrial stripe measures 6 mm. No endometrial cavity mass or fluid collection. Right ovary measures 2.8 x 1.8 x 2.6 cm and left measures 2.9 x 2.3 x 3.4 cm. Normal perfusion bilaterally. Left ovary demonstrates 1.8 cm dominant cyst. No suspicious adnexal mass or free fluid. Impression: Incidental 1.8 cm dominant left ovary cyst and tiny nabothian cyst. Remaining transvaginal pelvic sonogram is negative. Comment: Preliminary report was given.
== END 2024-08-09 17:01 | disposition home or self-care (01) ==
LOC: ED 09:10
DX: K57.90 Diverticulosis of intestine, part unspecified, without perforation or abscess without bleeding (principal); K64.4 Residual hemorrhoidal skin tags; K57.91 Diverticulosis of intestine, part unspecified, without perforation or abscess with bleeding; K92.1 Melena; R10.32 Left lower quadrant pain; R11.2 Nausea with vomiting, unspecified; Z79.899 Other long term (current) drug therapy
CPT/HCPCS: 36000; 36415; 74176; 76830; 80053; 81001; 82150; 83605; 83690; 84703; 85025; 96374; 96375; 99284; J2270; J2405; A9270-GY

== ENCOUNTER → 2025-02-11 | Emergency (ER) | payer OTHER ==
[~2025-02-11] MED LIST: MORPHINE SULFATE 4 MG INJ ONE; Zofran 4 MG/2 ML VIAL ONE
[2025-02-11 14:47] LABS: Appearance Clear (Clear); Bacteria None Seen /HPF (None Seen); Bilirubin Negative (Negative); Blood Negative (Negative); Epithelial Cells Few /HPF (None Seen); Glucose, Urine Negative (Negative); Hyaline Casts NONE SEEN /LPF (0-2); Ketones Negative (Negative); Leukocyte Esterase Trace (Negative); Nitrite Negative (Negative); Protein,Urine Dip Negative (Negative); RBC 0-2 /HPF (0-5); Urobilinogen 0.2 mg/dL (0.2)
[2025-02-11 14:48] LABS: Hemoglobin 13.7 g/dL (11.2-15.7); Mean Cell Volume 90.3 fL (79.4-94.8); Mean Corpuscular Hemoglobin 28.8 pg (25.6-32.2); Mean Corpuscular Hgb Concent. 31.9 g/dL (32.2-35.5); Mean Platelet Volume 10.5 fL (9.4-12.3); Platelet Count 226 x10^3/uL (182-369); Red Blood Count 4.76 x10^6/uL (3.93-5.22); Red Cell Distribution Width 13.2 % (11.7-14.4); White Blood Count 9.2 x10^3/uL (3.98-10.04)
[2025-02-11 15:03] LABS: HCG SERUM TEST NEGATIVE (NEGATIVE)
[2025-02-11 15:05] LABS: ALBUMIN 4.1 g/dL (3.5-5.0); ANION GAP 13.1 MEQ/L (5-15); BILIRUBIN,TOTAL 0.4 mg/dL (0.2-1.3); Calcium 8.7 mg/dL (8.4-10.2); Creatinine 1 1.21 mg/dL (0.52-1.04); EST GLOMERULAR FILTRATION RATE 54.6 ML/MIN; Potassium 4.6 mmol/L (3.5-5.1); Total Protein 6.9 g/dL (6.3-8.2)
== END | disposition short-term general hospital (02) ==
LOC: ED 11:37
DX: K62.3 Rectal prolapse (principal); K64.3 Fourth degree hemorrhoids; K62.89 Other specified diseases of anus and rectum; Z79.899 Other long term (current) drug therapy
CPT/HCPCS: 36415; 80053; 81001; 84703; 85027; 96374; 96375; 99285; J2270; J2405